=== PATIENT | female | born 1945 | race Caucasian/White ===

== ENCOUNTER 2017-08-01 14:40 | Inpatient (IN) | payer OTHER, MEDICARE, SELFPAY ==
[2017-08-01 15:02] VITALS: BP 157/49; PULSE 68; RESP 18; TEMP 36.7; O2SAT 96; BMI 22.7
[2017-08-01 15:09] VITALS: BP 157/49; PULSE 68; RESP 18; TEMP 36.7; O2SAT 96
--- NOTE | 2017-08-01 15:15 | NURSING ---
PT ARRIVED VIA WC W/FAMILY FROM [facility] MAIN AT 1440
[2017-08-01] MEDS: Amox/Clavulanate 875 MG Tablet PO (17:44)
--- NOTE | 2017-08-01 19:27 | PCM.HP.STD ---
Problem List (1) E coli bacteremia Status: Acute (2) Acute cholecystitis Status: Acute (3) Cholelithiasis Status: Acute (4) Hyperbilirubinemia Status: Acute (5) Abdominal pain Status: Acute (6) Hypothyroidism Status: Chronic (7) GODOY (nonalcoholic steatohepatitis) Status: Chronic (8) Cirrhosis Status: Chronic (9) Ascites Status: Chronic (10) Chronic kidney disease Status: Chronic (11) Coronary artery disease Status: Chronic (12) Portal hypertension Status: Acute History of Present Illness Date of Admission: 08/01/17 Chief Complaint: Here for rehabilitation, strengthening, prior to discharge home with spouse. The patient is a 71 year old Female with below past medical history significant for GODOY cirrhosis complicated by portal hypertension, recurrent ascites (requiring monthly paracentesis), CAD s/p CABG 2012, hypothyroidism, known cholelithiasis admitted to [facility] with abdominal pain x 4 days. Right upper quadrant ultrasound concerning for acute cholecystitis. Patient was scheduled for IR percutaneous cholecystostomy tube placement, but developed symptomatic bradycardia in the 30's. Cardiology consulted and cleared patient for procedure. Patient had E. Coli bacteremia treated with IV Zosyn. General Surgery considered cholecystectomy versus cholecystostomy tube placement. HIDA scan was positive. 07/26/2017 IR placed cholecystostomy tube with notable bhavani pus on placement. 08/01/2017 Admit to TCU for rehabilitation, strengthening, prior to discharge home with spouse. Will need lap cholecystectomy in near future. Past Medical History Past Medical History (Chronic Problems): Chronic Problems Hypothyroidism (Chronic) GODOY (nonalcoholic steatohepatitis) (Chronic) Cirrhosis (Chronic) Pulmonary hypertension (Chronic) Ascites (Chronic) Chronic kidney disease (Chronic) Coronary artery disease (Chronic) Allergies Sulfa (Sulfonamide Antibiotics) Allergy (Verified 08/01/17 15:04) Hives Home Medications: Ambulatory Orders Medication Instructions Recorded Amoxicillin/Potassium Clav 1 tab PO BID 08/01/17 [Augmentin 875-125 Tablet] Erythromycin Base [Erythromycin] 250 mg PO BID 08/01/17 Furosemide [Lasix] 40 mg PO 0600,1400 08/01/17 Lactulose [Chronulac] 30 ml PO TID 08/01/17 Levothyroxine [Synthroid] 25 mcg PO DAILY 08/01/17 Omeprazole 40 mg PO DAILY 08/01/17 Spironolactone [Aldactone] 100 mg PO DAILY 08/01/17 Surgical History: coronary bypass surgery - x 3 (2012), - - 07/26/2017 cholecystostomy tube placement. Psychiatric History: No pertinent psych hx CRIMINAL JUDGE History: No pertinent CRIMINAL JUDGE history Lives: Spouse/ Significant Other Smoking Status: Former smoker Tobacco Use: Non-smoker Alcohol: None Drugs: None - *Family History Maternal History Items: No pertinent history Paternal History Items: No pertinent history Review of Systems Constitutional: Denies: Chills, Fever, Weight Change HEENT: Denies: Head Aches, Sinus Congestion, Sinus Drainage Cardiovascular: Denies: Chest Pain, Palpitations Respiratory: Denies: Cough, Shortness of breath at rest, Sputum production Gastrointestinal: Denies: Abdominal Pain, Nausea, Vomiting Genitourinary: Denies: Dysuria Musculoskeletal: Denies: Joint Pain, Joint Tenderness Skin: Denies: Rash, Wounds Neurological: Denies: Numbness, Tingling, Focal weakness Psychiatric: Denies: Anxiety, Depression, Homicidal Ideations, Suicidal Ideations Hematologic/ Lymphatic: Denies: Easy Bruising, Easy Bleeding VTE Information - Inpt Only VTE Present on Admission: No VTE Mechan Device Prophylaxis: Knee High NGUYỄN Hose VTE Pharm Prophylaxis ordered?: Yes Patient Problems: Active and Suspected Problems E coli bacteremia (Acute) Acute cholecystitis (Acute) Cholelithiasis (Acute) Hyperbilirubinemia (Acute) Abdominal pain (Acute) Portal hypertension (Acute) - Physical Exam General: Alert, Oriented x3, Cooperative HEENT: Atraumatic, PERRLA, EOMI, Normocephalic Neck: Supple, No JVD, Negative Carotid Bruits Lungs: Clear to auscultation, Normal air movement Cardiovascular: Regular rate, No murmurs Abdomen: Bowel Sounds Present, Soft, Non Tender, - - Cholecystostomy tube right upper quadrant. Extremities: No edema, Capillary Refill Less than 3 Seconds Skin: No rashes, No breakdown Musculoskeletal: No Tenderness to Palpation of Joints or Extremities Neurological: Cranial nerves II-XII grossly intact Psych/Mental Status: Normal Affect, Appropriate Vital Signs Temp Pulse Resp BP Pulse Ox 98.1 F 68 18 157/49 H 96 08/01/17 15:09 08/01/17 15:09 08/01/17 15:09 08/01/17 15:09 08/01/17 15:09 Oxygen Delivery Method Room Air Weight: 54.522 kg Body Mass Index (BMI) 22.7 Assessment/Plan Active and Suspected Problems E coli bacteremia (Acute) Acute cholecystitis (Acute) Cholelithiasis (Acute) Hyperbilirubinemia (Acute) Abdominal pain (Acute) Portal hypertension (Acute) 71 year old female with below past medical history significant for GODOY cirrhosis with recurrent ascites, hospitalized for E. Coli bacteremia from acute cholecystitis with choledocholithiasis, underwent percutaneous cholecystostomy tube placement 07/26/2017 per interventional radiology, admitted to TCU with debility, here for rehabilitation, strengthening, prior to discharge home with spouse. Debility - PT/OT. Pain - Tylenol 650MG Q6H PRN mild pain. Bowel - Lactulose 20GM TID. Pneumonia vaccination - Administer Prevnar 13 and/or Pneumovax 23 as necessary. DVT prophylaxis - Lovenox 40MG SC daily. E. Coli bacteremia - Augmentin 875MG BID thru 08/09/2017, E-mycin 250MG BID. Cholelithiasis - will need lap deion in near future. Nutrition - Ensure Enlive 120ML 4x/day. Ascites/edema - Lasix 40MG BID, Aldactone 100MG daily. Hypothyroidism - Levothyroxine 25MCG daily. GERD - Pantoprazole 40MG daily. GODOY cirrhosis - Lactulose 20GM TID, Rx Xifaxan 550MG BID.
--- NOTE | 2017-08-01 19:40 | HP.PCM_ITS ---
Problem List (1) E coli bacteremia Status: Acute (2) Acute cholecystitis Status: Acute (3) Cholelithiasis Status: Acute (4) Hyperbilirubinemia Status: Acute (5) Abdominal pain Status: Acute (6) Hypothyroidism Status: Chronic (7) GODOY (nonalcoholic steatohepatitis) Status: Chronic (8) Cirrhosis Status: Chronic (9) Ascites Status: Chronic (10) Chronic kidney disease Status: Chronic (11) Coronary artery disease Status: Chronic (12) Portal hypertension Status: Acute History of Present Illness Date of Admission: 08/01/17 Chief Complaint: Here for rehabilitation, strengthening, prior to discharge home with spouse. The patient is a 71 year old Female with below past medical history significant for GODOY cirrhosis complicated by portal hypertension, recurrent ascites ( requiring monthly paracentesis), CAD s/p CABG 2012, hypothyroidism, known cholelithiasis admitted to [facility] with abdominal pain x 4 days. Right upper quadrant ultrasound concerning for acute cholecystitis. Patient was scheduled for IR percutaneous cholecystostomy tube placement, but developed symptomatic bradycardia in the 30's. Cardiology consulted and cleared patient for procedure. Patient had E. Coli bacteremia treated with IV Zosyn. General Surgery considered cholecystectomy versus cholecystostomy tube placement. HIDA scan was positive. 07/26/2017 IR placed cholecystostomy tube with notable bhavani pus on placement. 08/01/2017 Admit to TCU for rehabilitation, strengthening, prior to discharge home with spouse. Will need lap cholecystectomy in near future. Past Medical History Past Medical History (Chronic Problems): Chronic Problems Hypothyroidism (Chronic) GODOY (nonalcoholic steatohepatitis) (Chronic) Cirrhosis (Chronic) Pulmonary hypertension (Chronic) Ascites (Chronic) Chronic kidney disease (Chronic) Coronary artery disease (Chronic) Allergies Sulfa (Sulfonamide Antibiotics) Allergy (Verified 08/01/17 15:04) Hives Home Medications: Ambulatory Orders Medication Instructions Recorded Amoxicillin/Potassium Clav 1 tab PO BID 08/01/17 [Augmentin 875-125 Tablet] Erythromycin Base [Erythromycin] 250 mg PO BID 08/01/17 Furosemide [Lasix] 40 mg PO 0600,1400 08/01/17 Lactulose [Chronulac] 30 ml PO TID 08/01/17 Levothyroxine [Synthroid] 25 mcg PO DAILY 08/01/17 Omeprazole 40 mg PO DAILY 08/01/17 Spironolactone [Aldactone] 100 mg PO DAILY 08/01/17 Surgical History: coronary bypass surgery - x 3 (2012), - - 07/26/2017 cholecystostomy tube placement. Psychiatric History: No pertinent psych hx POLICY DIRECTOR History: No pertinent POLICY DIRECTOR history Lives: Spouse/ Significant Other Smoking Status: Former smoker Tobacco Use: Non-smoker Alcohol: None Drugs: None - *Family History Maternal History Items: No pertinent history Paternal History Items: No pertinent history Review of Systems Constitutional: Denies: Chills, Fever, Weight Change HEENT: Denies: Head Aches, Sinus Congestion, Sinus Drainage Cardiovascular: Denies: Chest Pain, Palpitations Respiratory: Denies: Cough, Shortness of breath at rest, Sputum production Gastrointestinal: Denies: Abdominal Pain, Nausea, Vomiting Genitourinary: Denies: Dysuria Musculoskeletal: Denies: Joint Pain, Joint Tenderness Skin: Denies: Rash, Wounds Neurological: Denies: Numbness, Tingling, Focal weakness Psychiatric: Denies: Anxiety, Depression, Homicidal Ideations, Suicidal Ideations Hematologic/ Lymphatic: Denies: Easy Bruising, Easy Bleeding VTE Information - Inpt Only VTE Present on Admission: No VTE Mechan Device Prophylaxis: Knee High NGUYỄN Hose VTE Pharm Prophylaxis ordered?: Yes Patient Problems: Active and Suspected Problems E coli bacteremia (Acute) Acute cholecystitis (Acute) Cholelithiasis (Acute) Hyperbilirubinemia (Acute) Abdominal pain (Acute) Portal hypertension (Acute) - Physical Exam General: Alert, Oriented x3, Cooperative HEENT: Atraumatic, PERRLA, EOMI, Normocephalic Neck: Supple, No JVD, Negative Carotid Bruits Lungs: Clear to auscultation, Normal air movement Cardiovascular: Regular rate, No murmurs Abdomen: Bowel Sounds Present, Soft, Non Tender, - - Cholecystostomy tube right upper quadrant. Extremities: No edema, Capillary Refill Less than 3 Seconds Skin: No rashes, No breakdown Musculoskeletal: No Tenderness to Palpation of Joints or Extremities Neurological: Cranial nerves II-XII grossly intact Psych/Mental Status: Normal Affect, Appropriate Vital Signs Temp Pulse Resp BP Pulse Ox 98.1 F 68 18 157/49 H 96 08/01/17 15:09 08/01/17 15:09 08/01/17 15:09 08/01/17 15:09 08/01/17 15:09 Oxygen Delivery Method Room Air Weight: 54.522 kg Body Mass Index (BMI) 22.7 Assessment/Plan Active and Suspected Problems E coli bacteremia (Acute) Acute cholecystitis (Acute) Cholelithiasis (Acute) Hyperbilirubinemia (Acute) Abdominal pain (Acute) Portal hypertension (Acute) 71 year old female with below past medical history significant for GODOY cirrhosis with recurrent ascites, hospitalized for E. Coli bacteremia from acute cholecystitis with choledocholithiasis, underwent percutaneous cholecystostomy tube placement 07/26/2017 per interventional radiology, admitted to TCU with debility, here for rehabilitation, strengthening, prior to discharge home with spouse. * Debility - PT/OT. * Pain - Tylenol 650MG Q6H PRN mild pain. * Bowel - Lactulose 20GM TID. * Pneumonia vaccination - Administer Prevnar 13 and/or Pneumovax 23 as necessary. * DVT prophylaxis - Lovenox 40MG SC daily. * E. Coli bacteremia - Augmentin 875MG BID thru 08/09/2017, E-mycin 250MG BID. * Cholelithiasis - will need lap deion in near future. * Nutrition - Ensure Enlive 120ML 4x/day. * Ascites/edema - Lasix 40MG BID, Aldactone 100MG daily. * Hypothyroidism - Levothyroxine 25MCG daily. * GERD - Pantoprazole 40MG daily. * GODOY cirrhosis - Lactulose 20GM TID, Rx Xifaxan 550MG BID.
[2017-08-01] MEDS: Lactulose 20 GM/30 ML UDC PO (20:48)
[2017-08-01] MEDS: Acetaminophen 325 MG Tablet 650 MG PO (22:08)
[2017-08-02 06:13] LABS: Absolute Lymphocyte Count 1.21 X10^3/ul (0.83-4.51); Absolute Neutrophil Count 2.6 X10^3/uL (2.0-7.7); Basophil# 0.08 X10^3/uL; Basophil% 1.6 % (0-1); Eosinophil# 0.12 X10^3/uL; Eosinophils% 2.4 % (0-5); Hemoglobin 11.4 g/dl (12.0-15.0); Lymphocyte # 1.21 X10^3/ul (4.0); Lymphocyte % 23.7 % (19-41); Mean Corp Hgb Conc 34.5 g/gl (32-36); Mean Corpuscular Hgb 33.8 pg (27.0-32.0); Mean Corpuscular Volume 97.9 fL (81-99); Mean Platelet Vol. 10.6 fl (6.2-12.0); Monocyte# 1.02 X10^3/uL; Neutrophil # 2.64 X10^3/uL (2.7-7.7); Neutrophil % 51.7 % (47-70); Platelet Count 127 K/mm3 (150-450); RBC Distribution Width CV 17.1 % (11.6-14.6); RBC Distribution Width SD 54.6 fl (35.1-43.9); Red Blood Count 3.37 M/mm3 (4.2-5.4); White Blood Count 5.1 K/mm3 (4.4-11.0)
[2017-08-02 06:14] LABS: POSITIVE COUNT NO; POSITIVE DIFFERENTIAL NO; POSITIVE MORPHOLOGY NO
[2017-08-02 06:24] LABS: AST(SGOT) 25 U/L (15-37); Alanine Aminotransfer ALT/SGPT 12 U/L (13-56); Albumin, Serum 2.6 g/dL (3.2-5.0); Alkaline Phosphatase 67 U/L (45-117); Anion Gap 9 (5-15); BUN 14 mg/dL (7-18); BUN/Creat Ratio 22.2 RATIO (10-20); Calcium,Total 8.3 mg/dL (8.5-10.1); Chloride 116 mmol/L (98-107); Creatinine, Serum 0.63 mg/dL (0.55-1.02); EST Glomerular Filtration Rate 98 mL/min (>60); Est Glom Filt Rate - Afr Amer 119 mL/min (>60); Estimated Creatinine Clearance 38.37 ml/min; Globulin 2.7 g/dL (2.2-4.2); Glucose 72 mg/dL (74-106); Potassium 3.8 mmol/L (3.5-5.1); Protein, Total 5.3 g/dL (6.4-8.2); Sodium Level 144 mmol/L (136-145)
[2017-08-02] MEDS: rifAXIMin 550 MG Tablet PO ×2 (06:27→17:56)
[2017-08-02] MEDS: Lactulose 20 GM/30 ML UDC PO ×2 (06:27→20:37)
[2017-08-02] MEDS: Levothyroxine 25 MCG TABLET PO (06:28)
[2017-08-02] MEDS: Spironolactone 50 MG Tablet 100 MG PO (06:28)
[2017-08-02] MEDS: Amox/Clavulanate 875 MG Tablet PO ×2 (06:28→17:56)
[2017-08-02] MEDS: Pantoprazole Sodium 40 MG Tablet PO (06:28)
[2017-08-02] MEDS: Furosemide 40 MG Tablet PO ×2 (06:28→13:26)
[2017-08-02] MEDS: Enoxaparin 40 MG/0.4 ML Syringe SC (06:41)
[2017-08-02] MEDS: Tuberculin,Purif.prot.deriv. 50 TU/ML Vial 5 ML ID (10:48)
[2017-08-02 14:46] VITALS: BP 133/57; PULSE 71; RESP 20; TEMP 36.4; O2SAT 95
[2017-08-03] MEDS: rifAXIMin 550 MG Tablet PO ×2 (05:33→18:09)
[2017-08-03] MEDS: Amox/Clavulanate 875 MG Tablet PO ×2 (05:33→18:09)
[2017-08-03] MEDS: Spironolactone 50 MG Tablet 100 MG PO (05:33)
[2017-08-03] MEDS: Furosemide 40 MG Tablet PO ×2 (05:33→14:31)
[2017-08-03] MEDS: Pantoprazole Sodium 40 MG Tablet PO (05:33)
[2017-08-03] MEDS: Levothyroxine 25 MCG TABLET PO (05:33)
[2017-08-03] MEDS: Enoxaparin 40 MG/0.4 ML Syringe SC (05:34)
--- NOTE | 2017-08-03 10:20 | NURSING ---
Was consulted to see patient for an ostomy appliance that was placed around the biliary drain to the right abdomen. according to the records from [facility], patient was too high risk for a cholecystectomy so they just placed a drainage tube instead. patient had a moderate amount of drainage from around to the tube so an ostomy bag was placed around the drain. applied was just applied on 07/31/17 so will leave in place at this time. there is a small amount of drainage in the pouch. will monitor and change weekly and prn.
[2017-08-03] MEDS: Lactulose 20 GM/30 ML UDC PO ×2 (14:31→20:31)
[2017-08-03 15:59] VITALS: BP 154/58; PULSE 78; RESP 16; TEMP 36.3; O2SAT 96
[2017-08-03 20:47] VITALS: RESP 18
[2017-08-04 05:48] VITALS: BP 107/62; PULSE 83
[2017-08-04] MEDS: Amox/Clavulanate 875 MG Tablet PO ×2 (05:51→18:05)
[2017-08-04] MEDS: Furosemide 40 MG Tablet PO ×2 (05:51→15:44)
[2017-08-04] MEDS: Levothyroxine 25 MCG TABLET PO (05:51)
[2017-08-04] MEDS: Enoxaparin 40 MG/0.4 ML Syringe SC (05:51)
[2017-08-04] MEDS: Pantoprazole Sodium 40 MG Tablet PO (05:51)
[2017-08-04] MEDS: rifAXIMin 550 MG Tablet PO ×2 (05:52→18:06)
[2017-08-04] MEDS: Spironolactone 50 MG Tablet 100 MG PO (05:52)
--- NOTE | 2017-08-04 15:17 | PHA.CONS_ITS ---
<Jacky Burns Soco - Last Filed: 08/04/17 15:12> Progress Note - Pharmacy Subjective: TCU Admission Objective: Allergies Sulfa (Sulfonamide Antibiotics) Allergy (Verified 08/01/17 15:04) Hives Home Medications Medication Instructions Recorded Amoxicillin/Potassium Clav 1 tab PO BID 08/01/17 [Augmentin 875-125 Tablet] Erythromycin Base [Erythromycin] 250 mg PO BID 08/01/17 Furosemide [Lasix] 40 mg PO 0600,1400 08/01/17 Lactulose [Chronulac] 30 ml PO TID 08/01/17 Levothyroxine [Synthroid] 25 mcg PO DAILY 08/01/17 Omeprazole 40 mg PO DAILY 08/01/17 Spironolactone [Aldactone] 100 mg PO DAILY 08/01/17 Current Medications Generic Name Dose Route Start Last Admin Trade Name Freq PRN Reason Stop Dose Admin Acetaminophen 650 mg 08/01/17 20:12 08/01/17 22:08 Tylenol PO 650 mg Q6H PRN PRN Administration MILD PAIN (1-3/10) Amoxicillin/Clavulanate Potassium 875 mg 08/01/17 18:00 08/04/17 05:51 Augmentin Tablet PO 08/09/17 18:01 875 mg BID DELORES Administration Enoxaparin Sodium 40 mg 08/02/17 06:00 08/04/17 05:51 Lovenox SC 40 mg DAILY@0600 DELORES Administration Erythromycin 250 mg 08/01/17 18:00 08/04/17 05:51 Erythromycin Base PO 250 mg BID DELORES Administration Furosemide 40 mg 08/02/17 06:00 08/04/17 05:51 Lasix PO 40 mg 0600,1400 DELORES Administration Lactulose 20 gm 08/01/17 22:00 08/04/17 05:52 Chronulac, Cephulac PO Not Given TID DELORES Levothyroxine Sodium 25 mcg 08/02/17 06:00 08/04/17 05:51 Synthroid PO 25 mcg DAILY DELORES Administration Nutritional Formula (Lactose Free) 120 ml 08/01/17 17:00 08/04/17 12:07 Ensure Enlive PO 120 ml 4X/DAY DELORES Administration Pantoprazole Sodium 40 mg 08/02/17 06:00 08/04/17 05:51 Protonix PO 40 mg DAILY DELORES Administration Rifaximin 550 mg 08/02/17 06:00 08/04/17 05:52 Xifaxan PO 550 mg BID DELORES Administration Spironolactone 100 mg 08/02/17 06:00 08/04/17 05:52 Aldactone PO 100 mg DAILY DELORES Administration Tuberculin PPD 5 tu 08/09/17 10:00 Tubersol, Aplisol, Ppd ID 08/09/17 10:01 X1 ONE Problem List E coli bacteremia (Acute) Acute cholecystitis (Acute) Cholelithiasis (Acute) Hyperbilirubinemia (Acute) Abdominal pain (Acute) Hypothyroidism (Chronic) GODOY (nonalcoholic steatohepatitis) (Chronic) Cirrhosis (Chronic) Pulmonary hypertension (Chronic) Ascites (Chronic) Chronic kidney disease (Chronic) Coronary artery disease (Chronic) Portal hypertension (Acute) Vital Signs Temp Pulse Resp BP Pulse Ox 97.3 F L 83 18 107/62 96 08/03/17 15:59 08/04/17 05:48 08/03/17 20:47 08/04/17 05:48 08/03/17 15:59 Oxygen Flow Rate (L/min) 2 Oxygen Delivery Method Room Air Weight: 50.95 kg Body Mass Index (BMI) 22.7 Sodium 144 mmol/L (136-145) 08/02/17 05:15 Potassium 3.8 mmol/L (3.5-5.1) 08/02/17 05:15 Chloride 116 mmol/L (98-107) H 08/02/17 05:15 Carbon Dioxide 19.0 mmol/L (21.0-32.0) L 08/02/17 05:15 Anion Gap 9 (5-15) 08/02/17 05:15 BUN 14 mg/dL (7-18) 08/02/17 05:15 Creatinine 0.63 mg/dL (0.55-1.02) 08/02/17 05:15 Est GFR (MDRD) Af Amer 119 mL/min (>60) 08/02/17 05:15 Est GFR (MDRD) Non-Af 98 mL/min (>60) 08/02/17 05:15 BUN/Creatinine Ratio 22.2 RATIO (10-20) H 08/02/17 05:15 Glucose 72 mg/dL (74-106) L 08/02/17 05:15 Assessment/Plan: 1) Ascites/Edema Furosemide, spironolactone. BP/HR within goal ranges, K wnl. Continue to monitor BP/HR, renal function, electrolytes. 2) ID Amoxicillin/clav until 08/09/17, erythromycin. WBC not elevated, afebrile. Continue to monitor s/s infection. 3) Cirrhosis Lactulose 3x/day, rifaximin twice daily. Continue to monitor bowel movements , s/s encephalopathy. 4) Nutrition Ensure supplement. Continue to monitor clinically. 5) DVT PPx Enoxaparin daily. Continue to monitor s/s bleeding/clot. 6) GI Pantoprazole daily. Continue to monitor s/s GI distress. 7) Hypothyroidism Levothyroxine daily. Continue to monitor s/s hyper/hypothyroidism. Psychotropic Medications: None Unnecessary Medications: None Bowel Regimen: 8) Lactulose for cirrhosis (#3) Date of Note:: 08/04/17 - Provider Comments Provider responsibility: Provider responsible to enter orders to implement recommendations <Kiko Velasco Chi - Last Filed: 08/04/17 17:40> Progress Note - Pharmacy Subjective: [] Objective: Allergies Sulfa (Sulfonamide Antibiotics) Allergy (Verified 08/01/17 15:04) Hives Home Medications Medication Instructions Recorded Amoxicillin/Potassium Clav 1 tab PO BID 08/01/17 [Augmentin 875-125 Tablet] Erythromycin Base [Erythromycin] 250 mg PO BID 08/01/17 Furosemide [Lasix] 40 mg PO 0600,1400 08/01/17 Lactulose [Chronulac] 30 ml PO TID 08/01/17 Levothyroxine [Synthroid] 25 mcg PO DAILY 08/01/17 Omeprazole 40 mg PO DAILY 08/01/17 Spironolactone [Aldactone] 100 mg PO DAILY 08/01/17 Current Medications Generic Name Dose Route Start Last Admin Trade Name Freq PRN Reason Stop Dose Admin Acetaminophen 650 mg 08/01/17 20:12 08/01/17 22:08 Tylenol PO 650 mg Q6H PRN PRN Administration MILD PAIN (1-3/10) Amoxicillin/Clavulanate Potassium 875 mg 08/01/17 18:00 08/04/17 05:51 Augmentin Tablet PO 08/09/17 18:01 875 mg BID DELORES Administration Enoxaparin Sodium 40 mg 08/02/17 06:00 08/04/17 05:51 Lovenox SC 40 mg DAILY@0600 DELORES Administration Erythromycin 250 mg 08/01/17 18:00 08/04/17 05:51 Erythromycin Base PO 250 mg BID DELORES Administration Furosemide 40 mg 08/02/17 06:00 08/04/17 15:44 Lasix PO 40 mg 0600,1400 DELORES Administration Lactulose 20 gm 08/01/17 22:00 08/04/17 15:44 Chronulac, Cephulac PO 20 gm TID DELORES Administration Levothyroxine Sodium 25 mcg 08/02/17 06:00 08/04/17 05:51 Synthroid PO 25 mcg DAILY DELORES Administration Nutritional Formula (Lactose Free) 120 ml 08/01/17 17:00 08/04/17 12:07 Ensure Enlive PO 120 ml 4X/DAY DELORES Administration Pantoprazole Sodium 40 mg 08/02/17 06:00 08/04/17 05:51 Protonix PO 40 mg DAILY DELORES Administration Rifaximin 550 mg 08/02/17 06:00 08/04/17 05:52 Xifaxan PO 550 mg BID DELORES Administration Spironolactone 100 mg 08/02/17 06:00 08/04/17 05:52 Aldactone PO 100 mg DAILY DELORES Administration Tuberculin PPD 5 tu 08/09/17 10:00 Tubersol, Aplisol, Ppd ID 08/09/17 10:01 X1 ONE Problem List E coli bacteremia (Acute) Acute cholecystitis (Acute) Cholelithiasis (Acute) Hyperbilirubinemia (Acute) Abdominal pain (Acute) Hypothyroidism (Chronic) GODOY (nonalcoholic steatohepatitis) (Chronic) Cirrhosis (Chronic) Pulmonary hypertension (Chronic) Ascites (Chronic) Chronic kidney disease (Chronic) Coronary artery disease (Chronic) Portal hypertension (Acute) Vital Signs Temp Pulse Resp BP Pulse Ox 97.5 F L 82 16 142/89 H 98 08/04/17 16:00 08/04/17 16:00 08/04/17 16:00 08/04/17 16:00 08/04/17 16:00 Oxygen Flow Rate (L/min) 2 Oxygen Delivery Method Room Air Weight: 50.95 kg Body Mass Index (BMI) 22.7 Sodium 144 mmol/L (136-145) 08/02/17 05:15 Potassium 3.8 mmol/L (3.5-5.1) 08/02/17 05:15 Chloride 116 mmol/L (98-107) H 08/02/17 05:15 Carbon Dioxide 19.0 mmol/L (21.0-32.0) L 08/02/17 05:15 Anion Gap 9 (5-15) 08/02/17 05:15 BUN 14 mg/dL (7-18) 08/02/17 05:15 Creatinine 0.63 mg/dL (0.55-1.02) 08/02/17 05:15 Est GFR (MDRD) Af Amer 119 mL/min (>60) 08/02/17 05:15 Est GFR (MDRD) Non-Af 98 mL/min (>60) 08/02/17 05:15 BUN/Creatinine Ratio 22.2 RATIO (10-20) H 08/02/17 05:15 Glucose 72 mg/dL (74-106) L 08/02/17 05:15 Assessment/Plan: Psychotropic Medications: Unnecessary Medications: Bowel Regimen: - Provider Comments Provider responsibility: Provider responsible to enter orders to implement recommendations Provider Comments to Recommendations by Pharmacy: Agree
[2017-08-04] MEDS: Lactulose 20 GM/30 ML UDC PO (15:44)
[2017-08-04 16:00] VITALS: BP 142/89; PULSE 82; RESP 16; TEMP 36.4; O2SAT 98
[2017-08-04 20:50] VITALS: PULSE 79; RESP 20; O2SAT 96
[2017-08-05] MEDS: Spironolactone 50 MG Tablet 100 MG PO (05:45)
[2017-08-05] MEDS: Furosemide 40 MG Tablet PO ×2 (05:45→13:42)
[2017-08-05] MEDS: Amox/Clavulanate 875 MG Tablet PO ×2 (05:46→17:56)
[2017-08-05] MEDS: Enoxaparin 40 MG/0.4 ML Syringe SC (05:46)
[2017-08-05] MEDS: Lactulose 20 GM/30 ML UDC PO ×3 (05:46→21:25)
[2017-08-05] MEDS: Pantoprazole Sodium 40 MG Tablet PO (05:46)
[2017-08-05] MEDS: rifAXIMin 550 MG Tablet PO ×2 (05:46→17:55)
[2017-08-05] MEDS: Levothyroxine 25 MCG TABLET PO (05:46)
--- NOTE | 2017-08-05 10:59 | CASEMGMT ---
Plan of care meeting held. Resident present as well as resident daughter. No discharge date set at this time. Resident to continue with further care and treatment on the Transitional Care Unit at this time. Resident plans to discharge home with spouse at time of discharge. Resident with an insurance update due on 08/06/17 and is aware that there is no guarantee of continued stay approval. Support given. Will continue to follow. Kiera HUTCHINSON, DEPUTY ASSESSOR
[2017-08-05] MEDS: Menthol/Lanolin/Calamine/Znox 113 GM Tube 1 APPLIC TOPICAL ×2 (13:29→21:24)
--- NOTE | 2017-08-05 14:37 | CASEMGMT ---
Brief interview for mental status (BIMS) and resident mood interview (PHQ-9) completed on this day. BIMS score 13/15. PHQ-9 score 08/07
[2017-08-05 15:28] VITALS: BP 144/71; PULSE 68; RESP 16; TEMP 35.8; O2SAT 94
[2017-08-06] MEDS: Menthol/Lanolin/Calamine/Znox 113 GM Tube 1 APPLIC TOPICAL ×3 (06:08→20:18)
[2017-08-06] MEDS: Lactulose 20 GM/30 ML UDC PO ×2 (06:10→20:16)
[2017-08-06] MEDS: Furosemide 40 MG Tablet PO ×2 (06:11→14:11)
[2017-08-06] MEDS: Levothyroxine 25 MCG TABLET PO (06:11)
[2017-08-06] MEDS: rifAXIMin 550 MG Tablet PO ×2 (06:11→17:12)
[2017-08-06] MEDS: Amox/Clavulanate 875 MG Tablet PO ×2 (06:11→17:12)
[2017-08-06] MEDS: Pantoprazole Sodium 40 MG Tablet PO (06:11)
[2017-08-06] MEDS: Spironolactone 50 MG Tablet 100 MG PO (06:12)
[2017-08-06] MEDS: Enoxaparin 40 MG/0.4 ML Syringe SC (06:14)
--- NOTE | 2017-08-06 13:32 | NURSING ---
biliary drain tube continues to leak around the insertion site. there was some leaking from the ostomy appliance that had been placed around the tube. removed the appliance at this time. there is a small amount of redness noted. cleansed skin with soap and water and patted dry. applied a piece of Hollihesive and then placed the ostomy appliance. placed another piece of Hollihesive around the tubing coming out through the ostomy bag followed by some Hytape. pt tolerated well. will continue to monitor.
--- NOTE | 2017-08-06 14:02 | CASEMGMT ---
Insurance Clinical information faxed. Pending continued stay approval at this time. Auth#[id number] Kiera HUTCHINSON, SILK CREPE MACHINE OPERATOR
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
[2017-08-06 16:00] VITALS: BP 123/60; PULSE 78; RESP 16; TEMP 36.8; O2SAT 96
[2017-08-07] MEDS: Pantoprazole Sodium 40 MG Tablet PO (06:33)
[2017-08-07] MEDS: Furosemide 40 MG Tablet PO ×2 (06:33→14:28)
[2017-08-07] MEDS: Enoxaparin 40 MG/0.4 ML Syringe SC (06:33)
[2017-08-07] MEDS: Spironolactone 50 MG Tablet 100 MG PO (06:33)
[2017-08-07] MEDS: Levothyroxine 25 MCG TABLET PO (06:33)
[2017-08-07] MEDS: Amox/Clavulanate 875 MG Tablet PO ×2 (06:33→18:25)
[2017-08-07] MEDS: Lactulose 20 GM/30 ML UDC PO ×3 (06:34→22:03)
[2017-08-07] MEDS: rifAXIMin 550 MG Tablet PO ×2 (06:34→18:25)
[2017-08-07] MEDS: Menthol/Lanolin/Calamine/Znox 113 GM Tube 1 APPLIC TOPICAL ×3 (06:38→22:03)
--- NOTE | 2017-08-07 08:23 | MDS.RN ---
Pain interview for MARGO 08/08/17 completed.
[2017-08-07 16:00] VITALS: BP 125/53; PULSE 69; RESP 20; TEMP 36.2; O2SAT 96
[2017-08-07 22:30] VITALS: RESP 15; O2SAT 95
[2017-08-08] MEDS: Amox/Clavulanate 875 MG Tablet PO ×2 (05:29→17:26)
[2017-08-08] MEDS: Levothyroxine 25 MCG TABLET PO (05:29)
[2017-08-08] MEDS: Furosemide 40 MG Tablet PO ×2 (05:29→14:27)
[2017-08-08] MEDS: rifAXIMin 550 MG Tablet PO ×2 (05:29→17:26)
[2017-08-08] MEDS: Pantoprazole Sodium 40 MG Tablet PO (05:30)
[2017-08-08] MEDS: Spironolactone 50 MG Tablet 100 MG PO (05:30)
[2017-08-08] MEDS: Enoxaparin 40 MG/0.4 ML Syringe SC (05:30)
[2017-08-08] MEDS: Menthol/Lanolin/Calamine/Znox 113 GM Tube 1 APPLIC TOPICAL ×3 (05:45→20:27)
--- NOTE | 2017-08-08 07:45 | NURSING ---
bili drain flushed with 5 cc sterile normal saline this am. flushed without difficulty. green drng noted in bag.
[2017-08-08] MEDS: Lactulose 20 GM/30 ML UDC PO ×2 (14:27→20:27)
[2017-08-08 15:35] VITALS: BP 122/53; PULSE 71; RESP 18; TEMP 36.4; O2SAT 94
[2017-08-08 21:30] VITALS: PULSE 82; RESP 20; O2SAT 97
[2017-08-09] MEDS: Menthol/Lanolin/Calamine/Znox 113 GM Tube 1 APPLIC TOPICAL ×3 (06:05→20:15)
[2017-08-09] MEDS: Lactulose 20 GM/30 ML UDC PO ×3 (06:07→20:17)
[2017-08-09] MEDS: Enoxaparin 40 MG/0.4 ML Syringe SC (06:08)
[2017-08-09] MEDS: Pantoprazole Sodium 40 MG Tablet PO (06:09)
[2017-08-09] MEDS: rifAXIMin 550 MG Tablet PO ×2 (06:09→18:19)
[2017-08-09] MEDS: Levothyroxine 25 MCG TABLET PO (06:09)
[2017-08-09] MEDS: Amox/Clavulanate 875 MG Tablet PO ×2 (06:09→18:19)
[2017-08-09] MEDS: Furosemide 40 MG Tablet PO ×2 (06:09→13:06)
[2017-08-09] MEDS: Spironolactone 50 MG Tablet 100 MG PO (06:09)
[2017-08-09 06:17] VITALS: PULSE 76; RESP 18; O2SAT 97
[2017-08-09 06:45] LABS: ALB/GLOB Ratio 0.9 RATIO (0.9-2.4); AST(SGOT) 32 U/L (15-37); Absolute Lymphocyte Count 1.27 X10^3/ul (0.83-4.51); Absolute Neutrophil Count 1.8 X10^3/uL (2.0-7.7); Alanine Aminotransfer ALT/SGPT 14 U/L (13-56); Albumin, Serum 3.1 g/dL (3.2-5.0); Alkaline Phosphatase 124 U/L (45-117); Anion Gap 8 (5-15); BUN 26 mg/dL (7-18); BUN/Creat Ratio 22.6 RATIO (10-20); Basophil# 0.06 X10^3/uL; Basophil% 1.4 % (0-1); Calcium,Total 9.6 mg/dL (8.5-10.1); Chloride 108 mmol/L (98-107); Creatinine, Serum 1.15 mg/dL (0.55-1.02); EST Glomerular Filtration Rate 49 mL/min (>60); Eosinophil# 0.14 X10^3/uL; Eosinophils% 3.3 % (0-5); Est Glom Filt Rate - Afr Amer 60 mL/min (>60); Estimated Creatinine Clearance 33.37 ml/min; Globulin 3.6 g/dL (2.2-4.2); Glucose 81 mg/dL (74-106); Hematocrit 37.7 % (37-47); Hemoglobin 12.8 g/dl (12.0-15.0); Lymphocyte # 1.27 X10^3/ul (4.0); Lymphocyte % 30.1 % (19-41); Mean Corpuscular Hgb 34.4 pg (27.0-32.0); Mean Corpuscular Volume 101.3 fL (81-99); Mean Platelet Vol. 10.6 fl (6.2-12.0); Monocyte# 0.94 X10^3/uL; Monocyte% 22.3 % (0-10); Neutrophil # 1.79 X10^3/uL (2.7-7.7); Neutrophil % 42.4 % (47-70); Platelet Count 167 K/mm3 (150-450); Potassium 3.3 mmol/L (3.5-5.1); Protein, Total 6.7 g/dL (6.4-8.2); RBC Distribution Width SD 66.6 fl (35.1-43.9); Red Blood Count 3.72 M/mm3 (4.2-5.4); Sodium Level 143 mmol/L (136-145); White Blood Count 4.2 K/mm3 (4.4-11.0)
[2017-08-09 06:47] LABS: Differential Indicated SCAN CRITERIA MET; POSITIVE COUNT NO; POSITIVE DIFFERENTIAL NO; POSITIVE MORPHOLOGY YES
[2017-08-09 07:51] LABS: Differential Comment SCAN
[2017-08-09 07:53] LABS: Anisocytosis 1+; Macrocytosis 1+
[2017-08-09] MEDS: Tuberculin,Purif.prot.deriv. 50 TU/ML Vial 5 ML ID (11:33)
[2017-08-09 15:51] VITALS: BP 143/53; PULSE 48; RESP 20; TEMP 36.8; O2SAT 93
[2017-08-09] MEDS: Acetaminophen 325 MG Tablet 650 MG PO (20:23)
[2017-08-10 05:50] LABS: Anion Gap 8 (5-15); BUN 27 mg/dL (7-18); BUN/Creat Ratio 25.2 RATIO (10-20); Calcium,Total 9.3 mg/dL (8.5-10.1); Chloride 110 mmol/L (98-107); Creatinine, Serum 1.07 mg/dL (0.55-1.02); EST Glomerular Filtration Rate 53 mL/min (>60); Est Glom Filt Rate - Afr Amer 65 mL/min (>60); Estimated Creatinine Clearance 35.86 ml/min; Glucose 85 mg/dL (74-106); Potassium 3.8 mmol/L (3.5-5.1); Sodium Level 144 mmol/L (136-145)
[2017-08-10] MEDS: Menthol/Lanolin/Calamine/Znox 113 GM Tube 1 APPLIC TOPICAL ×3 (06:24→20:52)
[2017-08-10] MEDS: Lactulose 20 GM/30 ML UDC PO ×3 (06:25→20:52)
[2017-08-10] MEDS: Enoxaparin 40 MG/0.4 ML Syringe SC (06:26)
[2017-08-10] MEDS: Spironolactone 50 MG Tablet 100 MG PO (06:26)
[2017-08-10] MEDS: Furosemide 40 MG Tablet PO ×2 (06:26→13:23)
[2017-08-10] MEDS: rifAXIMin 550 MG Tablet PO ×2 (06:27→17:00)
[2017-08-10] MEDS: Pantoprazole Sodium 40 MG Tablet PO (06:27)
[2017-08-10] MEDS: Levothyroxine 25 MCG TABLET PO (06:27)
[2017-08-10 06:30] VITALS: PULSE 80; RESP 16; O2SAT 98
--- NOTE | 2017-08-10 09:08 | NURSING ---
percutaneous drain and the pouch are both intact at this time. no leakage noted. will continue to monitor. there has been less leakage noted in the ostomy appliance that is placed around the drain. may be able to just place a drain sponge if minimal drainage is noted. will monitor.
[2017-08-10 10:00] VITALS: PULSE 90; RESP 16; O2SAT 95
--- NOTE | 2017-08-10 11:51 | CASEMGMT ---
Insurance Continued stay approved with next update due on 08/13/17. Auth#[id number] Kiera HUTCHINSON, EXECUTIVE MEETING MANAGER
[2017-08-10 15:10] VITALS: BP 129/72; PULSE 76; RESP 16; TEMP 36.5; O2SAT 95
--- NOTE | 2017-08-10 15:26 | NURSING ---
pt c/o nausea, dr santos notified, zofran order PRN
[2017-08-10] MEDS: Ondansetron ODT 4 MG Tablet PO (15:53)
[2017-08-11] MEDS: Menthol/Lanolin/Calamine/Znox 113 GM Tube 1 APPLIC TOPICAL ×3 (05:50→20:23)
[2017-08-11] MEDS: Lactulose 20 GM/30 ML UDC PO ×3 (05:50→20:23)
[2017-08-11] MEDS: Spironolactone 50 MG Tablet 100 MG PO (05:50)
[2017-08-11] MEDS: Furosemide 40 MG Tablet PO ×2 (05:51→13:46)
[2017-08-11] MEDS: Enoxaparin 40 MG/0.4 ML Syringe SC (05:51)
[2017-08-11] MEDS: Pantoprazole Sodium 40 MG Tablet PO (05:52)
[2017-08-11] MEDS: rifAXIMin 550 MG Tablet PO ×2 (05:52→17:25)
[2017-08-11] MEDS: Levothyroxine 25 MCG TABLET PO (05:52)
[2017-08-11 10:00] VITALS: PULSE 71; RESP 18; O2SAT 99
--- NOTE | 2017-08-11 14:47 | CASEMGMT ---
Brief interview for mental status (BIMS) and resident mood interview (PHQ-9) completed on this day. BIMS score 15. PHQ-9 score 05/09
--- NOTE | 2017-08-11 14:49 | CASEMGMT ---
Social Work Spoke with resident in room. This social media intern communicating that discharge date has been set for 08/16/17. Resident is agreeable to discharge date and plans to discharge home with family. Resident agreeable to outpatient physical therapy but is unsure of what facility yet. Resident plans to speak with resident family in regards to what outpatient therapy facility to go with. Resident planning to notify family about discharge, attempted to contact resident spouse about discharge date, voicemail left. Support given. Proposed discharge date: 08/16/17 PLAN: Discharge home with spouse and outpatient physical therapy. Kiera HUTCHINSON, LEAD INJECTION MOLD TECHNICIAN
[2017-08-11 16:00] VITALS: BP 138/57; PULSE 75; RESP 18; TEMP 36.3; O2SAT 97
--- NOTE | 2017-08-11 21:17 | PCM.DC ---
- Discharge Diagnoses Current Active Problems: Current Active and Chronic Problems E coli bacteremia (Acute) Acute cholecystitis (Acute) Cholelithiasis (Acute) Hyperbilirubinemia (Acute) Abdominal pain (Acute) Hypothyroidism (Chronic) GODOY (nonalcoholic steatohepatitis) (Chronic) Cirrhosis (Chronic) Pulmonary hypertension (Chronic) Ascites (Chronic) Chronic kidney disease (Chronic) Coronary artery disease (Chronic) Portal hypertension (Acute) You will use the following diet at home:: No restrictions, Regular Your food should be the consistency of: Regular Your liquids should be the consistency of: Regular/Thin Discharge Activity: Return to Normal Activity, May Shower, Use Walker May resume sexual activity in: No Restrictions Weight Bearing Status: Weight bearing as tolerated Call your doctor if you observe: Fever of 101 or Higher, Inability to urinate, Inability to have a bowel movement, Shortness of breath, Chest pain, Uncontrolled pain Allergies/Adverse Reactions: Allergies Sulfa (Sulfonamide Antibiotics) Allergy (Verified 08/01/17 15:04) Hives Medications to take at Discharge Furosemide [Lasix] 40 mg PO 0600,1400 08/01/17 Lactulose [Chronulac] 30 ml PO TID 08/01/17 Levothyroxine [Synthroid] 25 mcg PO DAILY 08/01/17 Omeprazole 40 mg PO DAILY 08/01/17 Spironolactone [Aldactone] 100 mg PO DAILY 08/01/17 Acetaminophen [Tylenol Tablet] 650 mg PO Q6H PRN PRN tablet 08/11/17 Menthol/Lanolin/Calamine/Znox [Calmoseptine Ointment] 1 applic TOPICAL TID tube 08/11/17 Ondansetron [Zofran Odt] 4 mg PO Q6H PRN PRN #60 tab 08/11/17 Potassium Chloride [K-Dur] 20 meq PO DAILYCM #30 tab 08/11/17 Rifaximin [Xifaxan] 550 mg PO BID #60 tab 08/11/17 The following prescriptions were given: Ondansetron [Zofran Odt] 4 mg PO Q6H PRN PRN #60 tab PRN Reason: Nausea Potassium Chloride [K-Dur] 20 meq PO DAILYCM #30 tab Rifaximin [Xifaxan] 550 mg PO BID #60 tab Primary Care Physician: Fish Becerril [Primary Care Provider] - Please follow up with your Primary Care Physician in: 1 week. Please Follow Up With: NIURKA REIS MD When: [phone] Please Follow Up With: YARA GALICIA When: [phone] Proposed Discharge Date: 08/16/17
--- NOTE | 2017-08-11 21:19 | PCM.DC.SUM ---
Discharge Date and Diagnosis - Problem List Patient Problems: Active and Suspected Problems E coli bacteremia (Acute) Acute cholecystitis (Acute) Cholelithiasis (Acute) Hyperbilirubinemia (Acute) Abdominal pain (Acute) Portal hypertension (Acute) Date of Admission: 08/01/17 Date of Discharge: 08/16/17 - Primary Discharge Diagnosis Active and Suspected Problems E coli bacteremia (Acute) Acute cholecystitis (Acute) Cholelithiasis (Acute) Hyperbilirubinemia (Acute) Abdominal pain (Acute) Portal hypertension (Acute) - Secondary Discharge Diagnosis Chronic Problems Hypothyroidism (Chronic) GODOY (nonalcoholic steatohepatitis) (Chronic) Cirrhosis (Chronic) Pulmonary hypertension (Chronic) Ascites (Chronic) Chronic kidney disease (Chronic) Coronary artery disease (Chronic) Hospital Course and Treatment Imaging Results: 08/01/17 16:06 Diet: Regular Diet Food consistency:: Regular Liquid Consistency:: Regular/Thin Is pt able to select menu?: No Diet Comments: LOW SALT Labs (Last 48 Hours) 08/10/17 05:05 Sodium 144 Potassium 3.8 Chloride 110 H Carbon Dioxide 26.0 Anion Gap 8 BUN 27 H Creatinine 1.07 H Estim Creat Clear Calc 35.86 Est GFR (MDRD) Af Amer 65 Est GFR (MDRD) Non-Af 53 L BUN/Creatinine Ratio 25.2 H Glucose 85 Calcium 9.3 Consultations 08/01/17 18:16 Consult: Onc/Wound/tinning 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 Coli bacteremia from acute cholecystitis with choledocholithiasis, underwent percutaneous cholecystostomy tube placement 07/26/2017 per interventional radiology, admitted to TCU with debility, here for rehabilitation, strengthening, prior to discharge home with spouse. [] Discharge home with spouse, and outpatient physical therapy. Discharge Diet: No Restrictions Discharge Activity: Return to Normal Activity, May Shower, Use Walker May resume sexual activity in: No Restrictions Weight Bearing Status: Weight bearing as tolerated Call your doctor if you observe: Fever of 101 or Higher, Inability to urinate, Inability to have a bowel movement, Shortness of breath, Chest pain, Uncontrolled pain Home Medications: Medications to take at Discharge Furosemide [Lasix] 40 mg PO 0600,1400 04/21/18 Lactulose [Chronulac] 30 ml PO TID 08/01/17 Levothyroxine [Synthroid] 25 mcg PO DAILY 08/01/17 Omeprazole 40 mg PO DAILY 08/01/17 Spironolactone [Aldactone] 100 mg PO DAILY 08/01/17 Acetaminophen [Tylenol Tablet] 650 mg PO Q6H PRN PRN tablet 08/11/17 Menthol/Lanolin/Calamine/Znox [Calmoseptine Ointment] 1 applic TOPICAL TID tube 08/11/17 Ondansetron [Zofran Odt] 4 mg PO Q6H PRN PRN #60 tab 08/11/17 Potassium Chloride [K-Dur] 20 meq PO DAILYCM #30 tab 08/11/17 Rifaximin [Xifaxan] 550 mg PO BID #60 tab 08/11/17 Following Prescrptions Were Given to Patient: Ondansetron [Zofran Odt] 4 mg PO Q6H PRN PRN #60 tab PRN Reason: Nausea Potassium Chloride [K-Dur] 20 meq PO DAILYCM #30 tab Rifaximin [Xifaxan] 550 mg PO BID #60 tab Primary Care Physician: Fish Becerril [Primary Care Provider] - Please follow up with your Primary Care Physician in: 1 week. Please Follow Up With: NIURKA REIS MD When: [phone] Please Follow Up With: YARA GALICIA When: [phone] Disposition: Home Minutes spent on discharge:: 30 Patient Condition:: Good Medical Necessity - Tobacco Use Smoking Status: Former smoker Tobacco Use: Non-smoker Meaningful Use Info Meaningful Use Diagnoses (Choose all that apply): None applicable
[2017-08-12] MEDS: Pantoprazole Sodium 40 MG Tablet PO (06:10)
[2017-08-12] MEDS: Menthol/Lanolin/Calamine/Znox 113 GM Tube 1 APPLIC TOPICAL ×3 (06:10→20:46)
[2017-08-12] MEDS: Spironolactone 50 MG Tablet 100 MG PO (06:10)
[2017-08-12] MEDS: Furosemide 40 MG Tablet PO ×2 (06:10→13:47)
[2017-08-12] MEDS: Levothyroxine 25 MCG TABLET PO (06:10)
[2017-08-12] MEDS: Lactulose 20 GM/30 ML UDC PO ×3 (06:10→20:47)
[2017-08-12] MEDS: Enoxaparin 40 MG/0.4 ML Syringe SC (06:11)
[2017-08-12] MEDS: rifAXIMin 550 MG Tablet PO ×2 (06:11→17:16)
[2017-08-12 06:27] VITALS: PULSE 74; RESP 16; O2SAT 95
[2017-08-12 15:28] VITALS: BP 147/74; PULSE 82; RESP 18; TEMP 36.6; O2SAT 98
--- NOTE | 2017-08-12 19:11 | NURSING ---
TEACHING DONE WITH ON DRAIN. WILL CONTINUE TO TEACH.
[2017-08-13 05:58] VITALS: BP 111/64; PULSE 68
[2017-08-13] MEDS: Furosemide 40 MG Tablet PO ×2 (05:59→13:18)
[2017-08-13] MEDS: rifAXIMin 550 MG Tablet PO ×2 (05:59→17:27)
[2017-08-13] MEDS: Spironolactone 50 MG Tablet 100 MG PO (05:59)
[2017-08-13] MEDS: Levothyroxine 25 MCG TABLET PO (05:59)
[2017-08-13] MEDS: Pantoprazole Sodium 40 MG Tablet PO (05:59)
[2017-08-13] MEDS: Lactulose 20 GM/30 ML UDC PO ×3 (06:00→20:04)
[2017-08-13] MEDS: Enoxaparin 40 MG/0.4 ML Syringe SC (06:00)
[2017-08-13] MEDS: Menthol/Lanolin/Calamine/Znox 113 GM Tube 1 APPLIC TOPICAL ×3 (06:00→20:03)
--- NOTE | 2017-08-13 08:41 | NURSING ---
In to assess the ostomy appliance around the percutaneous drain. appliance loose. patient has a fine rash to the right lower and left lower abdomen. there has been very minimal drainage noted around the insertion site. removed the ostomy appliance. cleansed with soap and water and patted dry. there is a small amount of redness noted. placed a split drain sponge followed by a 4x4 dressing. secured dressing with tape. pt tolerated well. patient aware that dressing should be changed every other day at home. dressing should be changed more often in drainage around the tube increases. pt denies questions at this time.
[2017-08-13 10:00] VITALS: PULSE 72; RESP 16; O2SAT 95
--- NOTE | 2017-08-13 11:35 | CASEMGMT ---
Insurance Clinical information faxed. Pending continued stay approval. Auth#[id number] Kiera HUTCHINSON, TWISTING FRAME CHANGER
--- NOTE | 2017-08-13 11:52 | NURSING ---
EVANGELINA Qureshi aware of pt removal of ascities pouch by wound nurse and dressing change orders for discharge.
[2017-08-13 15:36] VITALS: BP 133/69; PULSE 70; RESP 16; TEMP 36.7; O2SAT 97
--- NOTE | 2017-08-13 20:19 | NURSING ---
GILBERT IN ROOM. THIS NURSE TAUGHT TO EMPTY BILI DRAIN AND DO FLUSH. GILBERT HAS WATCHED X 3. TOMORROW NIGHT HE WILL DO PROCEDURE AND THIS NURSE WILL WATCH. AND PATIENT COMFORTABLE WITH SAME. THIS REPORTED TO RADHA,RN AND JILLIAN RN. WILL CONT TO MONITOR.
[2017-08-14] MEDS: Menthol/Lanolin/Calamine/Znox 113 GM Tube 1 APPLIC TOPICAL ×3 (06:06→21:10)
[2017-08-14] MEDS: Spironolactone 50 MG Tablet 100 MG PO (06:07)
[2017-08-14] MEDS: rifAXIMin 550 MG Tablet PO ×2 (06:07→17:55)
[2017-08-14] MEDS: Levothyroxine 25 MCG TABLET PO (06:07)
[2017-08-14] MEDS: Lactulose 20 GM/30 ML UDC PO ×3 (06:07→21:09)
[2017-08-14] MEDS: Furosemide 40 MG Tablet PO ×2 (06:07→14:54)
[2017-08-14] MEDS: Enoxaparin 40 MG/0.4 ML Syringe SC (06:08)
[2017-08-14] MEDS: Pantoprazole Sodium 40 MG Tablet PO (06:08)
--- NOTE | 2017-08-14 13:24 | MDS.RN ---
Information for the mds was obtained from review of the clinical record, interview of resident, staff, and direct observation of resident's care.
--- NOTE | 2017-08-14 13:36 | CASEMGMT ---
Social Work Met with resident in room to collaborate on discharge plan. Resident requesting for outpatient physical therapy to be set up through [facility] in [place], [place]. Resident reporting to have needed equipment already set up within the home. Resident spouse to provide transportation home for resident. Resident spouse has also been participating in teaching for managing resident drains. Dressing supplies ordered and faxed to [facility], per resident request. Resident spouse planning to tow picker supplies from [facility]. Resident spouse aware and agreeable to all discharge planning. Support given. Telephone call to [facility], appointment set up for August 26 @ 4:30pm. Order faxed. - This was the soonest that would work for resident. PLAN: Discharge home with spouse and outpatient physical therapy. Kiera HUTCHINSON, MANAGER SAFE
[2017-08-14] MEDS: Hydrocortisone 2.5% Crm 1 APPLIC TOPICAL (14:56)
[2017-08-14 16:00] VITALS: BP 135/66; PULSE 74; RESP 16; TEMP 37; O2SAT 99
--- NOTE | 2017-08-14 19:22 | NURSING ---
instructed on drain dressing change. denies any questions.
[2017-08-15] MEDS: Menthol/Lanolin/Calamine/Znox 113 GM Tube 1 APPLIC TOPICAL ×3 (04:54→21:01)
[2017-08-15] MEDS: Levothyroxine 25 MCG TABLET PO ×2 (04:55)
[2017-08-15] MEDS: Furosemide 40 MG Tablet PO ×2 (04:55→16:11)
[2017-08-15] MEDS: rifAXIMin 550 MG Tablet PO ×2 (04:55→16:28)
[2017-08-15] MEDS: Pantoprazole Sodium 40 MG Tablet PO (04:55)
[2017-08-15] MEDS: Hydrocortisone 2.5% Crm 1 APPLIC TOPICAL ×2 (04:56→16:31)
[2017-08-15] MEDS: Enoxaparin 40 MG/0.4 ML Syringe SC (04:56)
[2017-08-15] MEDS: Spironolactone 50 MG Tablet 100 MG PO (04:56)
[2017-08-15] MEDS: Lactulose 20 GM/30 ML UDC PO ×3 (04:56→22:25)
--- NOTE | 2017-08-15 11:01 | NURSING ---
Addendum entered by Nicol Lopez 08/15/17 17:17: correction: hold rifaximin until further notice, not rifampin. Original Note: Addendum entered by Nicol Lopez 08/15/17 17:12: Patient's rash worsening, now large, red, raised areas to RLQ, BL upper arms and back, very pruritic. Bili drain noted to have moderate amount of bloody drainage, 60mL total. Dr. Velasco notified, NO for CBC w/diff, CMP, STAT CT of abdomen and pelvis with and without contrast and UA C&S straight cath, hold rifampin until further notice. Patient and spouse made aware. Original Note: Patient has a red, raised rash from scalp to flank/torso area. Hytone cream ineffective for itching. NO for medrol dose pack.
[2017-08-15 14:13] VITALS: BP 122/53; PULSE 77; RESP 20; TEMP 36.4; O2SAT 97
[2017-08-15] MEDS: MethylPREDNISolone DosePak 4 MG BOX PO ×2 (16:29→22:25)
--- NOTE | 2017-08-15 17:10 | CT_ITS ---
STUDY: CT ABDOMEN AND PELVIS WITHOUT CONTRAST REASON FOR EXAM: Female, 71 years old. Ascites. Gallbladder dysfunction. RADIATION DOSAGE (If Supplied By Facility): CTDIvol = ( 6.04 ) mGy, DLP = ( 276.33 ) mGycm TECHNIQUE: Transaxial images were obtained from the dome of the diaphragm to the symphysis pubis without oral contrast, and without intravenous contrast. Sagittal and coronal images were reconstructed. Individualized dose optimization techniques were used for this CT. COMPARISON: None. FINDINGS: There is a moderate size right pleural effusion present. There are coronary artery calcifications present. There is a diffuse contour abnormality of the liver consistent with cirrhotic changes. There is a cholecystostomy tube within the gallbladder. Normal spleen. Normal pancreas. Normal bilateral adrenal glands. Normal right kidney. Normal left kidney. Normal visualized stomach. Normal small intestine. There are diverticula throughout the descending and sigmoid colon. The appendix is visualized and appears normal. Normal abdominal aorta. Normal inferior vena cava. Normal retroperitoneum. Normal urinary bladder. Normal abdominal wall. There are diffuse degenerative changes of the visualized lumbar spine. CT/Abdomen/Pel W ORAL Cont Only IMPRESSION: Moderate right pleural effusion. Cirrhotic liver. Atherosclerosis. Colonic diverticulosis. Degenerative changes. No free fluid identified. Electronically Signed: Wilma Doran MD at 21:44 EDT Tel , Service support ,
[2017-08-15 17:46] LABS: Absolute Lymphocyte Count 1.37 X10^3/ul (0.83-4.51); Absolute Neutrophil Count 1.9 X10^3/uL (2.0-7.7); Basophil# 0.05 X10^3/uL; Eosinophil# 0.18 X10^3/uL; Eosinophils% 3.7 % (0-5); Hematocrit 36.1 % (37-47); Hemoglobin 12.1 g/dl (12.0-15.0); Lymphocyte # 1.37 X10^3/ul (4.0); Lymphocyte % 28.2 % (19-41); Mean Corp Hgb Conc 33.5 g/gl (32-36); Mean Corpuscular Hgb 34.4 pg (27.0-32.0); Mean Corpuscular Volume 102.6 fL (81-99); Mean Platelet Vol. 10.4 fl (6.2-12.0); Monocyte# 1.33 X10^3/uL; Monocyte% 27.4 % (0-10); Neutrophil # 1.89 X10^3/uL (2.7-7.7); Neutrophil % 39.1 % (47-70); Platelet Count 181 K/mm3 (150-450); RBC Distribution Width CV 18.6 % (11.6-14.6); RBC Distribution Width SD 68.4 fl (35.1-43.9); Red Blood Count 3.52 M/mm3 (4.2-5.4); White Blood Count 4.9 K/mm3 (4.4-11.0)
[2017-08-15 17:48] LABS: Differential Indicated SCAN CRITERIA MET; POSITIVE COUNT NO; POSITIVE DIFFERENTIAL NO; POSITIVE MORPHOLOGY YES
[2017-08-15 18:06] LABS: ALB/GLOB Ratio 0.8 RATIO (0.9-2.4); AST(SGOT) 43 U/L (15-37); Alanine Aminotransfer ALT/SGPT 20 U/L (13-56); Albumin, Serum 3.2 g/dL (3.2-5.0); Alkaline Phosphatase 178 U/L (45-117); Anion Gap 8 (5-15); BUN 30 mg/dL (7-18); BUN/Creat Ratio 20.5 RATIO (10-20); Calcium,Total 9.5 mg/dL (8.5-10.1); Chloride 101 mmol/L (98-107); Creatinine, Serum 1.46 mg/dL (0.55-1.02); EST Glomerular Filtration Rate 37 mL/min (>60); Est Glom Filt Rate - Afr Amer 45 mL/min (>60); Estimated Creatinine Clearance 26.28 ml/min; Globulin 4.1 g/dL (2.2-4.2); Glucose 90 mg/dL (74-106); Potassium 5.6 mmol/L (3.5-5.1); Protein, Total 7.3 g/dL (6.4-8.2); Sodium Level 136 mmol/L (136-145)
[2017-08-15 18:13] LABS: Anisocytosis 1+; Macrocytosis 1+; Ovalocyte RARE; Platelet Estimate ADEQUATE (ADEQ)
--- NOTE | 2017-08-15 18:37 | NURSING ---
Labs reviewed with GHULAM Shepherd for kayexalate 30grams x1 now, 1L NS bolus x1, BMP tomorrow and culture, cell count and gram stain of bili drainage. Okay to use oral contrast instead of IV d/t kidney function. Patient and made aware.
[2017-08-15] MEDS: Sodium Polystyrene Sulfonate 15 GM/60 ML UDC 30 GM PO (20:58)
[2017-08-15 21:11] VITALS: PULSE 72; RESP 18; O2SAT 97
[2017-08-15 21:44] LABS: Appearance/Body Fluid CLOUDY; Auto B Fluid Analyzer BKGD Ct COUNTS W/IN LIMITS (W/IN LIMITS); Color/Body Fluid RED; Source- Body Fluid OTHER
[2017-08-15 21:45] LABS: Body Fluid QC Type(s) BF1Q; Lymphocytes 8 %; Monocytes 2 %; Neutrophil (Segs) 90 %
[2017-08-15] MEDS: 0.9% Normal Saline 1,000 ML 500 ML IV (21:45)
--- NOTE | 2017-08-15 22:16 | NURSING ---
Addendum entered by Kylah Vasquez 08/15/17 22:19: Pt and updated. Original Note: Dr Velasco notified of CT results. N.O. to stop enoxparin.
[2017-08-15 23:10] LABS: Red Cell Count/Body Fluid 1491 /mm3; White Blood Count/Body Fluid 859 /mm3
[2017-08-16] MEDS: Lactulose 20 GM/30 ML UDC PO (05:41)
[2017-08-16] MEDS: Menthol/Lanolin/Calamine/Znox 113 GM Tube 1 APPLIC TOPICAL (05:41)
[2017-08-16] MEDS: Spironolactone 50 MG Tablet 100 MG PO (05:41)
[2017-08-16] MEDS: Pantoprazole Sodium 40 MG Tablet PO (05:42)
[2017-08-16] MEDS: Furosemide 40 MG Tablet PO (05:42)
[2017-08-16] MEDS: Hydrocortisone 2.5% Crm 1 APPLIC TOPICAL (05:42)
[2017-08-16 07:39] LABS: Bacteria 0 SEEN /hpf (None Seen); Mucous, Urine 0 SEEN /hpf (<or=2+); Red Blood Cells-Urine 0 SEEN /hpf (0-5)
[2017-08-16 07:45] LABS: Color, Urine Yellow (Yellow); Glucose, Dipstick Normal (Normal); Ketone-Dipstick Negative (Negative); Leukocyte Esterase-Dipstick 25 /ul (Negative); Nitrite-Dipstick Negative (Negative); Occult Blood-Urine 10 /ul (Negative); Protein-Dipstick Negative (Negative); Urine Bilirubin Dipstick Negative (Negative); Urine Clarity Clear (Clear); Urine Urobilinogen Normal (Normal); Urine pH 6.5 (5.0 - 8.0)
[2017-08-16 07:47] LABS: Absolute Lymphocyte Count 0.61 X10^3/ul (0.83-4.51); Absolute Neutrophil Count 2.2 X10^3/uL (2.0-7.7); Basophil# 0.02 X10^3/uL; Basophil% 0.7 % (0-1); Differential Indicated SCAN CRITERIA MET; Hematocrit 35.3 % (37-47); Hemoglobin 11.8 g/dl (12.0-15.0); Lymphocyte # 0.61 X10^3/ul (4.0); Lymphocyte % 20.1 % (19-41); Mean Corp Hgb Conc 33.4 g/gl (32-36); Mean Corpuscular Hgb 34.5 pg (27.0-32.0); Mean Corpuscular Volume 103.2 fL (81-99); Mean Platelet Vol. 10.7 fl (6.2-12.0); Monocyte# 0.21 X10^3/uL; Monocyte% 6.9 % (0-10); Neutrophil # 2.16 X10^3/uL (2.7-7.7); Neutrophil % 71.3 % (47-70); POSITIVE COUNT NO; POSITIVE DIFFERENTIAL NO; POSITIVE MORPHOLOGY YES; Platelet Count 163 K/mm3 (150-450); RBC Distribution Width CV 18.4 % (11.6-14.6); RBC Distribution Width SD 66.1 fl (35.1-43.9); Red Blood Count 3.42 M/mm3 (4.2-5.4)
[2017-08-16 07:54] LABS: Squamous Epithelial Cells - UA 0-5 SEEN /hpf (5-10); White Blood Cells 0-5 SEEN /hpf (0-5)
[2017-08-16] MEDS: MethylPREDNISolone DosePak 4 MG BOX PO (07:55)
[2017-08-16 08:12] LABS: ALB/GLOB Ratio 0.8 RATIO (0.9-2.4); AST(SGOT) 42 U/L (15-37); Alanine Aminotransfer ALT/SGPT 22 U/L (13-56); Albumin, Serum 3.1 g/dL (3.2-5.0); Alkaline Phosphatase 167 U/L (45-117); Anion Gap 10 (5-15); BUN 27 mg/dL (7-18); BUN/Creat Ratio 21.3 RATIO (10-20); Calcium,Total 9.1 mg/dL (8.5-10.1); Chloride 100 mmol/L (98-107); Creatinine, Serum 1.27 mg/dL (0.55-1.02); EST Glomerular Filtration Rate 44 mL/min (>60); Est Glom Filt Rate - Afr Amer 53 mL/min (>60); Estimated Creatinine Clearance 30.21 ml/min; Glucose 126 mg/dL (74-106); Potassium 4.6 mmol/L (3.5-5.1); Protein, Total 7.1 g/dL (6.4-8.2); Sodium Level 136 mmol/L (136-145)
[2017-08-16 08:27] LABS: Anisocytosis 1+
[2017-08-16 10:00] VITALS: PULSE 67; O2SAT 98
--- NOTE | 2017-08-16 10:34 | NURSING ---
Per dustin Shepherd to discharge patient home today. D/C medrol dose pack and rifaximin.
--- NOTE | 2017-08-16 10:39 | NURSING ---
50 ml of sanguinous fluid drained from bili drain. Reported finding to chargeback analyst, Aggie.
[2017-08-16 11:37] VITALS: BP 149/63; PULSE 76; RESP 14; TEMP 36.4; O2SAT 96
--- NOTE | 2017-08-17 07:41 | MDS.RN ---
Pain interview for MARGO 08/15/17 completed on 08/14/17.
[2017-08-17 09:36] LABS: Pathologist Comment/Body Fluid Reviewed
--- NOTE | 2017-08-17 14:28 | CASEMGMT ---
Insurance Notified insurance of resident discharge on 08/16/17 to home with family and outpatient physical therapy. Auth#[id number] Kiera HUTCHINSON, ASSESSMENT RN
--- NOTE | 2017-08-28 10:05 | MDS.RN ---
Information for the mds was obtained from review of the clinical record, interview of resident, staff, and direct observation of resident's care.
== END 2017-08-16 11:30 | disposition home or self-care (01) | DRG 949 ==
PROVIDERS: Admitting Provider Family Medicine Geriatric Medicine; Family Provider Family Medicine; PCP Family Medicine; Visit Provider Family Medicine Geriatric Medicine
DX: Z48.815 Encounter for surgical aftercare following surgery on the digestive system (principal); R78.81 Bacteremia; K76.6 Portal hypertension; K80.42 Calculus of bile duct with acute cholecystitis without obstruction; R18.8 Other ascites; B96.20 Unspecified Escherichia coli [E. coli] as the cause of diseases classified elsewhere; K80.20 Calculus of gallbladder without cholecystitis without obstruction; E03.9 Hypothyroidism, unspecified; K75.81 Nonalcoholic steatohepatitis (NASH); K21.9 Gastro-esophageal reflux disease without esophagitis; I12.9 Hypertensive chronic kidney disease with stage 1 through stage 4 chronic kidney disease, or unspecified chronic kidney disease; N18.9 Chronic kidney disease, unspecified; I25.10 Atherosclerotic heart disease of native coronary artery without angina pectoris; Z95.1 Presence of aortocoronary bypass graft; Z79.899 Other long term (current) drug therapy; Z87.891 Personal history of nicotine dependence; I27.20 Pulmonary hypertension, unspecified
CPT/HCPCS: 36415; 80048; 80053; 81001; 85025; 87070; 87075; 87205; 89050; 90732; 97110; 97116; 97161; 97165; 97530; 97535; 97802; J7030

== ENCOUNTER 2018-02-09 12:52 | Inpatient (IN) | payer OTHER, MEDICARE, SELFPAY ==
[2018-02-09] VITALS (16 sets, daily range): BP systolic 92–113; BP diastolic 36–80; PULSE 75–89; RESP 16–29; TEMP 36.4–37.6; O2SAT 91–100; BMI 23.4; BMI 23.1
--- NOTE | 2018-02-09 13:42 | RAD_ITS ---
STUDY: X-RAY CHEST REASON FOR EXAM: Female, 72 years old. Increasing shortness of breath. Hypotension. Recent gallbladder surgery. TECHNIQUE: Single AP portable view of the chest. COMPARISON: Comparison is made with prior study dated March 26, 2009. FINDINGS: There is elevation of the right hemidiaphragm. Small right pleural effusion with underlying infiltration and/or atelectasis. Left lung is clear. Sternal cerclage wires and vascular clips are present from a prior sternotomy and coronary artery bypass graft procedure (CABG). Normal mediastinum and kalpana. Normal visualized pulmonary arteries. There is atherosclerotic calcification of the aortic arch with tortuosity. There are diffuse degenerative changes of the visualized thoracic spine. Normal visualized ribs, clavicles, and shoulders. There is no demonstrated abnormality of the visualized soft tissue structures of the upper abdomen. RAD/Chest 1 View (Portable) IMPRESSION: Small right pleural effusion with underlying infiltration and/or atelectasis. Electronically Signed: Ricardo Perry MD at 14:15 EDT Tel [phone], Service support ,
--- NOTE | 2018-02-09 13:42 | EKG12_ITS ---
Test Reason : ABN LABS Blood Pressure : / mmHG Vent. Rate : 078 BPM Atrial Rate : 078 BPM P-R Int : 146 ms QRS Dur : 094 ms QT Int : 416 ms P-R-T Axes : -27 095 017 degrees QTc Int : 474 ms Normal sinus rhythm Rightward axis Borderline ECG Confirmed by SHEEBA LOZANO, LEOPOLDO ([id number]), publication editor ANTONIO TREVIÑO ([id number]) on 02/17/2018 1:33:24 PM Referred By: Efra Larios Confirmed By:LEOPOLDO ALY MD
[2018-02-09 14:06] LABS: Differential Indicated MANUAL DIFF; Hematocrit 34.2 % (37-47); Hemoglobin 11.7 g/dl (12.0-15.0); Mean Corp Hgb Conc 34.2 g/gl (32-36); Mean Corpuscular Hgb 34.7 pg (27.0-32.0); Mean Corpuscular Volume 101.5 fL (81-99); Mean Platelet Vol. 10.6 fl (6.2-12.0); POSITIVE COUNT YES; POSITIVE DIFFERENTIAL YES; POSITIVE MORPHOLOGY YES; Platelet Count 81 K/mm3 (150-450); RBC Distribution Width CV 15.2 % (11.6-14.6); RBC Distribution Width SD 54.8 fl (35.1-43.9); Red Blood Count 3.37 M/mm3 (4.2-5.4)
[2018-02-09] MEDS: 0.9% Normal Saline 1,000 ML IV.SOLN. 1700 ML IV (14:07)
[2018-02-09 14:22] LABS: Hypochromasia 1+; Lymphocyte 7 % (19-41); Metamyelocyte 4 % (0-1); Monocyte 8 % (0-10); Neutrophil-Band 5 % (0-5); Neutrophil-Segmented 76 % (47-70); Platelet Estimate MOD DEC (ADEQ); Total Cells Counted 100 (MANUAL DIFF)
[2018-02-09 14:23] LABS: Absolute Lymphocyte Count 1.12 X10^3/ul (0.83-4.51)
[2018-02-09 14:28] LABS: ALB/GLOB Ratio 0.8 RATIO (0.9-2.4); AST(SGOT) 98 U/L (15-37); Alanine Aminotransfer ALT/SGPT 44 U/L (13-56); Albumin, Serum 2.8 g/dL (3.2-5.0); Alkaline Phosphatase 123 U/L (45-117); Anion Gap 8 (5-15); BUN 26 mg/dL (7-18); BUN/Creat Ratio 18.7 RATIO (10-20); Chloride 106 mmol/L (98-107); Creatinine, Serum 1.39 mg/dL (0.55-1.02); EST Glomerular Filtration Rate 39 mL/min (>60); Est Glom Filt Rate - Afr Amer 48 mL/min (>60); Estimated Creatinine Clearance 25.89 ml/min; Globulin 3.7 g/dL (2.2-4.2); Glucose 58 mg/dL (74-106); Lipase 92 U/L (73-393); Potassium 4.1 mmol/L (3.5-5.1); Protein, Total 6.5 g/dL (6.4-8.2); Sodium Level 139 mmol/L (136-145)
[2018-02-09 14:33] LABS: Lactic Acid 3.5 mmol/L (0.4-2.0)
--- NOTE | 2018-02-09 14:33 | ED.RN ---
lab resulted lactic 3.5, physician notified
[2018-02-09] MEDS: Piperacil/Tazobactam 3.375 GM/50 ML ML IV (14:37)
--- NOTE | 2018-02-09 14:38 | US_ITS ---
STUDY: ABDOMINAL ULTRASOUND -4 quadrants. REASON FOR VISIT: Female, 72 years old. Assessment for ascites and possible paracentesis. TECHNIQUE: Ultrasound evaluation of the 4 quadrants was performed with real-time and static oneil-scale imaging. TECHNICAL QUALITY: Adequate. COMPARISON: None. FINDINGS: There is a small amount of perihepatic fluid. Not enough fluid seen for paracentesis. Small right pleural effusion. US/Abdomen Limited IMPRESSION: Not enough fluid for safe paracentesis. Small right pleural effusion. Electronically Signed: Ricardo Perry MD at 13:13 EDT Tel [phone], Service support ,
[2018-02-09 14:46] LABS: Partial Thromboplast Time 42.8 Seconds (24.1-36.2); Prothrombin Time (Protime)PT. 22.8 SECONDS (11.7-14.9)
--- NOTE | 2018-02-09 15:42 | ED.DCSUM_ITS ---
- ER Visit Summary Date of Service: 02/09/18 Chief Complaint: Black stool, dark urine status post gallbladder stent yesterday History of Present Illness: The patient is a 72 F who has history of colon lithiasis and cholecystitis who is not an operative candidate had her percutaneous tube removed yesterday at the [facility]. A stent was placed. She presents because of concern for black stool. She also complains of lightheadedness, generalized weakness with abdominal pain and shortness of breath. She has not a good informant. Patient has a past medical history of coronary disease, hypercholesterolemia, end-stage renal disease, portal hypertension, pulmonary hypertension and ascites. Physical Examination: Patient is hypotensive with mean arterial pressure less than 65. She is not febrile. Patient appears jaundiced with scleral icterus. Pupils equal round reactive paradoxic muscle intact. Conjunctive appears pale. Uvula midline. No erythema XA posterior pharynx. Trachea midline. Lungs reveal no wheeze rales or rhonchi with good movement of air bilaterally. Heart is regular without murmur, gallop or rub. Abdomen is distended tympanitic with peritoneal findings. No evidence of infection port site. She is alert and oriented x3. Neuro exam is nonfocal. Test Results: White count is 16,000 with 81 segs, 5 bands and metamyelocytes. BUN and creatinine are 26 1.39. Total bilirubin is 2.6. Alk phos and AST are elevated 123 and 98 respectively. Lipase is normal. Lactate is elevated at 3.5. Emergency Department Course and Treatment: With recent intra-abdominal procedure and perineal findings can concern for exacerbation of her chronic cholecystitis, pancreatitis, bacterial peritonitis. Since she is hypotensive with mean arterial pressure less than 65 she received a 30 cc/kg bolus and 4.5 g of Zosyn for intra-abdominal coverage. Patient did respond to fluids. Dr. Tsai inform me there is minimal ascitic fluid and not amenable to ultrasound-guided paracentesis. He did inform me there is a small right pleural effusion. Treatment Plan: Dr. Maldonado 3. To perform ultrasound-guided paracentesis for diagnostic tests. She will require admission. Disposition: Admit PCU stepdown versus ICU Impression: 1. Severe sepsis 2. Hypotensive, fluid responsive 3. Renal insufficiency 4. Jaundice 5. Cholelithiasis with probable cholecystitis nonoperable 6. Small right pleural effusion This note was generated with Dragon dictation software. It may contain incorrect words, spelling, and punctuation that were not noted in review of the chart prior to signing ED Disposition - Plan for ED Patient: Chief Complaint: Abn Labs Referrals: Fish Becerril [Primary Care Provider] -
--- NOTE | 2018-02-09 16:13 | NURSING ---
DR ALEJANDRO FOR DR VARGAS
--- NOTE | 2018-02-09 16:35 | NURSING ---
PCU ABD PAIN KOTSONIS
[2018-02-09 17:59] LABS: Reflex Lactate? Y
[2018-02-09] MEDS: 0.9% Normal Saline 1,000 ML 100 ML IV (18:42)
[2018-02-09 19:00] LABS: Lactic Acid 3.1 mmol/L (0.4-2.0)
--- NOTE | 2018-02-09 22:47 | PCM.HP.STD ---
Problem List (1) Cholelithiasis Status: Chronic (2) Abdominal pain Status: Acute (3) Hypothyroidism Status: Chronic (4) Cirrhosis Status: Chronic (5) Pulmonary hypertension Status: Chronic (6) Ascites Status: Chronic (7) Chronic kidney disease Status: Chronic (8) Coronary artery disease Status: Chronic (9) Portal hypertension Status: Acute History of Present Illness Date of Admission: 02/09/18 Chief Complaint: Abdominal pain The patient is a 72 year old F with a PMH as above who presents one day after a procedure at the [facility]. She refuses to go back. She has cholelithiasis, however she is not an operative candidate given her very poor cardiac function if I have surgery my heart will stop. She had a PTC tube placed and then was in TCU for a few weeks in august. The tube was removed and the biliary stent was placed via endoscopy at the [facility] yesterday. She presents to our ER with a leukocytosis, abdominal pain that began today and tachypnea. She was given a dose of Zosyn in the ER as well as fluid and admitted for possible SBP. Of not her INR is 2.0 without medication, her lactic acid was elevated to 3.5 and decreased to 3.1 with IVF. Past Medical History Past Medical History (Chronic Problems): Chronic Problems Cholelithiasis (Chronic) Hypothyroidism (Chronic) GODOY (nonalcoholic steatohepatitis) (Chronic) Cirrhosis (Chronic) Pulmonary hypertension (Chronic) Ascites (Chronic) Chronic kidney disease (Chronic) Coronary artery disease (Chronic) Allergies Sulfa (Sulfonamide Antibiotics) Allergy (Verified 02/09/18 12:56) Hives Home Medications: Ambulatory Orders Medication Instructions Recorded Furosemide [Lasix] 40 mg PO DAILY 08/01/17 Levothyroxine [Synthroid] 25 mcg PO DAILY 08/01/17 Omeprazole 40 mg PO DAILY 08/01/17 Rifaximin [Xifaxan] 550 mg PO BID #60 tab 08/11/17 Lactulose [Chronulac] 30 ml PO TID #2700 ml 08/16/17 Ciprofloxacin HCl 500 mg PO BID 02/09/18 Hydroxyzine HCl 10 mg PO BID 02/09/18 Spironolactone [Aldactone] 100 mg PO BID 02/09/18 l Acidophil/B Lactis/B Longum 1 cap PO DAILY 02/09/18 [Florajen3 Capsule] Surgical History: coronary bypass surgery - x 3 (2012), - - 07/26/2017 cholecystostomy tube placement. 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 Denies: Fever, Weight Change HEENT: Denies: Head Aches, Sinus Congestion, Sinus Drainage Cardiovascular: Denies: Chest Pain, Palpitations Respiratory: Denies: Cough, Shortness of breath at rest, Sputum production Gastrointestinal: Reports: Abdominal Pain. Denies: Nausea, Vomiting Genitourinary: Denies: Dysuria Musculoskeletal: Denies: Joint Pain, Joint Tenderness Skin: Denies: Rash, Wounds Neurological: Denies: Numbness, Tingling, Focal weakness Psychiatric: Denies: Anxiety, Depression Hematologic/ Lymphatic: Denies: Easy Bruising, Easy Bleeding VTE Information - Inpt Only VTE Present on Admission: No - Physical Exam General: Alert, Oriented x3, Cooperative, No apparent distress HEENT: Atraumatic, PERRLA, EOMI, Normocephalic Neck: Supple, No JVD Lungs: Clear to auscultation, Normal air movement, No rhonchi, No wheeze, No rales Cardiovascular: Regular rate, Regular Rhythm, Normal S1, Normal S2, Murmur - 3/6 systolic Abdomen: Soft, Non-Distended, No Hepato-splenomegaly, Tender - diffusely tender Extremities: No edema, Capillary Refill Less than 3 Seconds Skin: No rashes, No breakdown Musculoskeletal: No Tenderness to Palpation of Joints or Extremities Neurological: Neuro grossly intact, Sensory exam intact to light touch and pain Psych/Mental Status: Normal Affect, Appropriate Vital Signs Temp Pulse Resp BP Pulse Ox 99.7 F H 81 20 H 94/45 L 95 02/09/18 22:00 02/09/18 22:00 02/09/18 22:00 02/09/18 22:00 02/09/18 22:00 Oxygen Flow Rate (L/min) 2 Oxygen Delivery Method Nasal Cannula Weight: 122 lb 2.177 oz Body Mass Index (BMI) 23.1 Laboratory Tests Past 24 Hrs 02/09/18 02/09/18 02/09/18 13:50 13:50 13:50 WBC 16.0 H RBC 3.37 L Hgb 11.7 L Hct 34.2 L MCV 101.5 H MCH 34.7 H MCHC 34.2 RDW 15.2 H RDW Differential 54.8 H Plt Count 81 L MPV 10.6 Neut % (Auto) Not Reportable Absolute Neuts (auto) 13.0 H Absolute Lymphs (auto) 1.12 Total Counted 100 Neutrophils % (Manual) 76 H Band Neutrophils % 5 Lymphocytes % (Manual) 7 L Monocytes % (Manual) 8 Metamyelocytes % 4 H Diff Path Review May foll Platelet Estimate MOD DEC Hypochromasia 1+ PT Cancelled INR Cancelled APTT Cancelled Sodium 139 Potassium 4.1 Chloride 106 Carbon Dioxide 25.0 Anion Gap 8 BUN 26 H Creatinine 1.39 H Estim Creat Clear Calc 25.89 Est GFR (MDRD) Af Amer 48 L Est GFR (MDRD) Non-Af 39 L BUN/Creatinine Ratio 18.7 Glucose 58 L Lactic Acid Calcium 9.0 Total Bilirubin 2.60 H AST 98 H ALT 44 Alkaline Phosphatase 123 H Total Protein 6.5 Albumin 2.8 L Globulin 3.7 Albumin/Globulin Ratio 0.8 L Lipase 92 02/09/18 02/09/18 02/09/18 13:50 14:20 18:18 WBC RBC Hgb Hct MCV MCH MCHC RDW RDW Differential Plt Count MPV Neut % (Auto) Absolute Neuts (auto) Absolute Lymphs (auto) Total Counted Neutrophils % (Manual) Band Neutrophils % Lymphocytes % (Manual) Monocytes % (Manual) Metamyelocytes % Diff Path Review Platelet Estimate Hypochromasia PT 22.8 H INR 2.0 APTT 42.8 H Sodium Potassium Chloride Carbon Dioxide Anion Gap BUN Creatinine Estim Creat Clear Calc Est GFR (MDRD) Af Amer Est GFR (MDRD) Non-Af BUN/Creatinine Ratio Glucose Lactic Acid 3.5 H 3.1 H Calcium Total Bilirubin AST ALT Alkaline Phosphatase Total Protein Albumin Globulin Albumin/Globulin Ratio Lipase Assessment/Plan All Active Problems E coli bacteremia (Acute) Acute cholecystitis (Acute) Hyperbilirubinemia (Acute) Abdominal pain (Acute) Portal hypertension (Acute) 1. Sepsis secondary to possible SBP/Cirrhosis with ascites/Chronic cholelithiasis - Initially she was going to have a paracentesis however the fluid was not in an area to be drained per report from the ER - Given the recent instrumentation of her biliary tree will treat for SBP - Do not have cefuroxime, so will do rocephin 2 gm Daily - IVF@100 given her cardiac function, could not find an echo to corroborate her cardiac concern, though she does have a significant murmur - Will obtain echo in the am - Her MELD-Na is 21 with a 7-10% mortality rate at 90 days - She wants to be full code - Can continue with xifaxin and lactulose, hold diuresis for now 2. Hypothyroidism - stable - c/w synthroid 3. GERD - stable - c/w PPI DVT: None, INR is 2.0 Code Visit Inpatient E&M: 34284 Init Hosp L3
--- NOTE | 2018-02-09 22:53 | HP.PCM_ITS ---
Problem List (1) Cholelithiasis Status: Chronic (2) Abdominal pain Status: Acute (3) Hypothyroidism Status: Chronic (4) Cirrhosis Status: Chronic (5) Pulmonary hypertension Status: Chronic (6) Ascites Status: Chronic (7) Chronic kidney disease Status: Chronic (8) Coronary artery disease Status: Chronic (9) Portal hypertension Status: Acute History of Present Illness Date of Admission: 02/09/18 Chief Complaint: Abdominal pain The patient is a 72 year old F with a PMH as above who presents one day after a procedure at the [facility]. She refuses to go back. She has cholelithiasis, however she is not an operative candidate given her very poor cardiac function if I have surgery my heart will stop. She had a PTC tube placed and then was in TCU for a few weeks in august. The tube was removed and the biliary stent was placed via endoscopy at the [facility] yesterday. She presents to our ER with a leukocytosis, abdominal pain that began today and tachypnea. She was given a dose of Zosyn in the ER as well as fluid and admitted for possible SBP. Of not her INR is 2.0 without medication, her lactic acid was elevated to 3.5 and decreased to 3.1 with IVF. Past Medical History Past Medical History (Chronic Problems): Chronic Problems Cholelithiasis (Chronic) Hypothyroidism (Chronic) GODOY (nonalcoholic steatohepatitis) (Chronic) Cirrhosis (Chronic) Pulmonary hypertension (Chronic) Ascites (Chronic) Chronic kidney disease (Chronic) Coronary artery disease (Chronic) Allergies Sulfa (Sulfonamide Antibiotics) Allergy (Verified 02/09/18 12:56) Hives Home Medications: Ambulatory Orders Medication Instructions Recorded Furosemide [Lasix] 40 mg PO DAILY 08/01/17 Levothyroxine [Synthroid] 25 mcg PO DAILY 08/01/17 Omeprazole 40 mg PO DAILY 08/01/17 Rifaximin [Xifaxan] 550 mg PO BID #60 tab 08/11/17 Lactulose [Chronulac] 30 ml PO TID #2700 ml 08/16/17 Ciprofloxacin HCl 500 mg PO BID 02/09/18 Hydroxyzine HCl 10 mg PO BID 02/09/18 Spironolactone [Aldactone] 100 mg PO BID 02/09/18 l Acidophil/B Lactis/B Longum 1 cap PO DAILY 02/09/18 [Florajen3 Capsule] Surgical History: coronary bypass surgery - x 3 (2012), - - 07/26/2017 cholecys tostomy tube placement. Psychiatric History: No pertinent psych hx PIGMENT PUMPER History: No pertinent PIGMENT PUMPER history Smoking Status: Former smoker Tobacco Use: Cigarettes Alcohol: None Drugs: None - *Family History Maternal History Items: No pertinent history Paternal History Items: No pertinent history Review of Systems Constitutional: Reports: Chills. Denies: Fever, Weight Change HEENT: Denies: Head Aches, Sinus Congestion, Sinus Drainage Cardiovascular: Denies: Chest Pain, Palpitations Respiratory: Denies: Cough, Shortness of breath at rest, Sputum production Gastrointestinal: Reports: Abdominal Pain. Denies: Nausea, Vomiting Genitourinary: Denies: Dysuria Musculoskeletal: Denies: Joint Pain, Joint Tenderness Skin: Denies: Rash, Wounds Neurological: Denies: Numbness, Tingling, Focal weakness Psychiatric: Denies: Anxiety, Depression Hematologic/ Lymphatic: Denies: Easy Bruising, Easy Bleeding VTE Information - Inpt Only VTE Present on Admission: No - Physical Exam General: Alert, Oriented x3, Cooperative, No apparent distress HEENT: Atraumatic, PERRLA, EOMI, Normocephalic Neck: Supple, No JVD Lungs: Clear to auscultation, Normal air movement, No rhonchi, No wheeze, No rales Cardiovascular: Regular rate, Regular Rhythm, Normal S1, Normal S2, Murmur - 3/6 systolic Abdomen: Soft, Non-Distended, No Hepato-splenomegaly, Tender - diffusely tender Extremities: No edema, Capillary Refill Less than 3 Seconds Skin: No rashes, No breakdown Musculoskeletal: No Tenderness to Palpation of Joints or Extremities Neurological: Neuro grossly intact, Sensory exam intact to light touch and pain Psych/Mental Status: Normal Affect, Appropriate Vital Signs Temp Pulse Resp BP Pulse Ox 99.7 F H 81 20 H 94/45 L 95 02/09/18 22:00 02/09/18 22:00 02/09/18 22:00 02/09/18 22:00 02/09/18 22:00 Oxygen Flow Rate (L/min) 2 Oxygen Delivery Method Nasal Cannula Weight: 122 lb 2.177 oz Body Mass Index (BMI) 23.1 Laboratory Tests Past 24 Hrs 02/09/18 02/09/1818 13:50 13:50 13:50 WBC 16.0 H RBC 3.37 L Hgb 11.7 L Hct 34.2 L MCV 101.5 H MCH 34.7 H MCHC 34.2 RDW 15.2 H RDW Differential 54.8 H Plt Count 81 L MPV 10.6 Neut % (Auto) Not Reportable Absolute Neuts (auto) 13.0 H Absolute Lymphs (auto) 1.12 Total Counted 100 Neutrophils % (Manual) 76 H Band Neutrophils % 5 Lymphocytes % (Manual) 7 L Monocytes % (Manual) 8 Metamyelocytes % 4 H Diff Path Review May foll Platelet Estimate MOD DEC Hypochromasia 1+ PT Cancelled INR Cancelled APTT Cancelled Sodium 139 Potassium 4.1 Chloride 106 Carbon Dioxide 25.0 Anion Gap 8 BUN 26 H Creatinine 1.39 H Estim Creat Clear Calc 25.89 Est GFR (MDRD) Af Amer 48 L Est GFR (MDRD) Non-Af 39 L BUN/Creatinine Ratio 18.7 Glucose 58 L Lactic Acid Calcium 9.0 Total Bilirubin 2.60 H AST 98 H ALT 44 Alkaline Phosphatase 123 H Total Protein 6.5 Albumin 2.8 L Globulin 3.7 Albumin/Globulin Ratio 0.8 L Lipase 92 02/09/18 02/09/18 02/09/18 13:50 14:20 18:18 WBC RBC Hgb Hct MCV MCH MCHC RDW RDW Differential Plt Count MPV Neut % (Auto) Absolute Neuts (auto) Absolute Lymphs (auto) Total Counted Neutrophils % (Manual) Band Neutrophils % Lymphocytes % (Manual) Monocytes % (Manual) Metamyelocytes % Diff Path Review Platelet Estimate Hypochromasia PT 22.8 H INR 2.0 APTT 42.8 H Sodium Potassium Chloride Carbon Dioxide Anion Gap BUN Creatinine Estim Creat Clear Calc Est GFR (MDRD) Af Amer Est GFR (MDRD) Non-Af BUN/Creatinine Ratio Glucose Lactic Acid 3.5 H 3.1 H Calcium Total Bilirubin AST ALT Alkaline Phosphatase Total Protein Albumin Globulin Albumin/Globulin Ratio Lipase Assessment/Plan All Active Problems E coli bacteremia (Acute) Acute cholecystitis (Acute) Hyperbilirubinemia (Acute) Abdominal pain (Acute) Portal hypertension (Acute) 1. Sepsis secondary to possible SBP/Cirrhosis with ascites/Chronic cholelithiasis - Initially she was going to have a paracentesis however the fluid was not in an area to be drained per report from the ER - Given the recent instrumentation of her biliary tree will treat for SBP - Do not have cefuroxime, so will do rocephin 2 gm Daily - IVF@100 given her cardiac function, could not find an echo to corroborate her cardiac concern, though she does have a significant murmur - Will obtain echo in the am - Her MELD-Na is 21 with a 7-10% mortality rate at 90 days - She wants to be full code - Can continue with xifaxin and lactulose, hold diuresis for now 2. Hypothyroidism - stable - c/w synthroid 3. GERD - stable - c/w PPI DVT: None, INR is 2.0 Code Visit Inpatient E&M: 43220 Init Hosp L3
--- NOTE | 2018-02-09 23:01 | ECHOD_ITS ---
Reason For Study: MURMUR Procedure This was a 2D Doppler, Color Flow transthoracic echocardiogram. Exam performed portable in patient room. Left Ventricle Normal size and thickness. The estimated ejection fraction is 60 %. Right Ventricle Normal size and thickness. Normal systolic function. Atria Normal left atrium. Normal right atrium. Normal atrial septum. Mitral Valve Mild diffuse mitral valve thickening. Mild mitral annular calcification extending into the posterior leaflet. Mild-Moderate (1-2+) posteriorly directed mitral valve insufficiency. Tricuspid Valve Normal tricuspid valve. Mild (1+) tricuspid valve insufficiency. Right ventricular systolic pressure estimated to be 28 mmHg. Aortic Valve Trisinus/trileaflet aortic valve. Severe diffuse aortic valve thickening. Moderate focal aortic valve calcification. Severe restriction of the aortic valve. Severe aortic stenosis. Peak aortic valve gradient 57 mmHg. Mean aortic valve gradient 37 mmHg. Calculated aortic valve area (continuity equation) is 0.90 cm2. Trivial aortic valve insufficiency. Pulmonic Valve Normal pulmonic valve. Great Vessels Normal aortic root. Normal arch. Normal inferior vena cava. Inferior vena cava collapse with sniff. Pericardium/Pleural No pericardial effusion. MMode/2D Measurements & Calculations RVDd: 3.1 cm LVOT diam: 2.2 cm Ao root diam: 3.0 cm LVOT area: 3.8 cm2 LAV(MOD-bp): 62.5 ml LA A4 area: 16.4 cm2 LA dimension(2D): 4.6 cm LAV(MOD-bp) Indexed: 40.8 ml/m2 LAV(MOD-sp2): 68.1 ml LAV(MOD-sp4): 48.2 ml RA A4 area: 13.6 cm2 Time Measurements MV dec time: 0.14 sec Doppler Measurements & Calculations MV E max vince: 112.7 cm/sec Lat Peak E' Vince: 11.5 cm/sec Med Peak E' Vince: 7.5 cm/sec MV A max vince: 46.5 cm/sec E/E' lat: 9.8 E/E' med: 15.1 MV E/A: 2.4 Ao V2 max: 361.8 cm/sec AI max vince: 397.4 cm/sec LV V1 max: 89.8 cm/sec Ao max P.5 mmHg AI max P.2 mmHg LV V1 max P.2 mmHg Ao V2 mean: 274.8 cm/sec AI dec slope: 358.5 cm/sec2 LV V1 mean P.8 mmHg Ao mean P.9 mmHg AI P1/2t: 324.6 msec LV V1 mean: 63.5 cm/sec Ao V2 VTI: 92.6 cm LV V1 VTI: 21.8 cm MEHDI(I,D): 0.90 cm2 MEHDI(V,D): 0.95 cm2 SV(LVOT): 83.8 ml PA V2 max: 69.2 cm/sec TR max vince: 236.0 cm/sec TR max P.5 mmHg MV P1/2t-pr_phl: 71.2 msec Interpretation Summary The estimated ejection fraction is 60 %. Mild-Moderate (1-2+) posteriorly directed mitral valve insufficiency. Mild (1+) tricuspid valve insufficiency. Right ventricular systolic pressure estimated to be 28 mmHg. Severe restriction of the aortic valve. Severe aortic stenosis. Peak aortic valve gradient 57 mmHg. Mean aortic valve gradient 37 mmHg. Calculated aortic valve area (continuity equation) is 0.90 cm2. Trivial aortic valve insufficiency. Compared to echo report dated 03/30/2009, LV function has remained the same; aortic stenosis now appears severe. Ordering Physician: Efra Larios Referring Physician: Fish Becerril Performed By: Venessa Gavin, JOSE A, RVT
[2018-02-10] VITALS (15 sets, daily range): BP systolic 90–129; BP diastolic 42–70; PULSE 65–84; RESP 11–21; TEMP 36.1–37.3; O2SAT 92–99
[2018-02-10 04:24] LABS: Reflex Lactate? Y
[2018-02-10] MEDS: 0.9% Normal Saline 1,000 ML 100 ML IV ×2 (04:28→15:36)
[2018-02-10] MEDS: Levothyroxine 25 MCG TABLET PO (05:31)
[2018-02-10 06:59] LABS: Absolute Lymphocyte Count 1.52 X10^3/ul (0.83-4.51); Absolute Neutrophil Count 8.7 X10^3/uL (2.0-7.7); Basophil# 0.03 X10^3/uL; Basophil% 0.3 % (0-1); Eosinophils% 0.8 % (0-5); Hematocrit 29.1 % (37-47); Hemoglobin 9.7 g/dl (12.0-15.0); Lymphocyte # 1.52 X10^3/ul (4.0); Lymphocyte % 12.8 % (19-41); Mean Corp Hgb Conc 33.3 g/gl (32-36); Mean Corpuscular Hgb 34.5 pg (27.0-32.0); Mean Corpuscular Volume 103.6 fL (81-99); Mean Platelet Vol. 11.2 fl (6.2-12.0); Monocyte# 1.46 X10^3/uL; Monocyte% 12.3 % (0-10); Neutrophil # 8.69 X10^3/uL (2.7-7.7); Neutrophil % 73.5 % (47-70); Platelet Count 70 K/mm3 (150-450); RBC Distribution Width SD 57.9 fl (35.1-43.9); Red Blood Count 2.81 M/mm3 (4.2-5.4); White Blood Count 11.8 K/mm3 (4.4-11.0)
[2018-02-10 07:06] LABS: BUN 27 mg/dL (7-18); BUN/Creat Ratio 25.7 RATIO (10-20); Calcium,Total 7.5 mg/dL (8.5-10.1); Chloride 111 mmol/L (98-107); Creatinine, Serum 1.05 mg/dL (0.55-1.02); EST Glomerular Filtration Rate 55 mL/min (>60); Est Glom Filt Rate - Afr Amer 66 mL/min (>60); Estimated Creatinine Clearance 36.01 ml/min; Glucose 66 mg/dL (74-106); Potassium 3.6 mmol/L (3.5-5.1); Sodium Level 141 mmol/L (136-145)
[2018-02-10 07:07] LABS: Anion Gap 8 (5-15)
[2018-02-10 07:13] LABS: POSITIVE COUNT NO; POSITIVE DIFFERENTIAL NO; POSITIVE MORPHOLOGY NO
--- NOTE | 2018-02-10 08:09 | US_ITS ---
STUDY: ABDOMINAL ULTRASOUND - RIGHT UPPER QUADRANT REASON FOR VISIT: Female, 72 years old. Jaundice. Evaluate for cholangitis. TECHNIQUE: Ultrasound evaluation of the right upper quadrant was performed with real-time and static oneil-scale imaging. TECHNICAL QUALITY: Limited by patient condition. COMPARISON: 02/09/2018 FINDINGS: Liver: The liver measures 13.1 cm. The liver is nodular in contour and heterogeneous in echotexture. The bile ducts are within normal limits. There is hepatic color flow. The direction of portal flow is hepatopetal. There is no demonstrated mass lesion. Gallbladder: Normal distended gallbladder. The gallbladder wall measures 8 mm. There is a negative sonographic Maguire's sign. There is no pericholecystic fluid. There are gallstones and sludge noted in the gallbladder. Common Bile Duct (C.B.D.): The common bile duct measures 4 mm. There is a stent in the common bile duct. Pancreas: Normal size of the head, body and tail of the pancreas. There is normal echogenicity of the pancreas. There is no pancreatic mass identified. There are vascular calcifications noted adjacent to the pancreas. Right Kidney: Normal size of the right kidney. The right kidney measures 9.0 cm. Normal renal cortex. There is no demonstrated renal mass or cyst. There is no right hydronephrosis. There is ascites noted. There is a right-sided pleural effusion. US/Liver IMPRESSION: Ascites. Right pleural effusion. Cirrhotic liver. No focal hepatic lesions identified. Please note that CT and MRI are more sensitive for the detection of hepatic lesion in the setting of cirrhosis. Gallstones and sludge noted in the gallbladder. Gallbladder wall thickening which is a nonspecific finding in the setting of ascites. Common bile duct stent in place. No biliary duct dilatation. Electronically Signed: Graeme Dunn, at 16:05 EDT Tel , Service support ,
--- NOTE | 2018-02-10 08:23 | PN_ITS ---
Subjective: Chief complaint: Follow-up after admission for severe sepsis due to probable cholecystitis versus ascending cholangitis as well as right-sided pleural effusion. Patient seen and examined. No acute events overnight. This morning, she mentioned that her abdominal pain is getting better but bridge tender. She denied nausea or vomiting. She denies fever chills. This patient had a complicated history, had recent nonoperable cholecystitis status post percutaneous cholecystostomy that was removed 3 days ago and she had a stent placed in her biliary tree. That was done at [facility]. At this time, she is afebrile, blood pressure and heart rate are stable, pulse ox is 98% on 2 L. - Physical Exam General: Alert, Oriented x3, Cooperative, No apparent distress HEENT: Atraumatic, PERRLA, EOMI, Normocephalic Oral: Moist Mucosa, No Gingival or Mucosal Lesions/ Ulcerations Neck: Supple, No JVD, Negative Carotid Bruits, Trachea Midline, Thyroid Normal Size and Texture Lungs: No wheeze, No rales, Rhonchi, - - Decreased breath sounds in the right base, rhonchi. Cardiovascular: Regular rate, Regular Rhythm, Normal S1, Normal S2, Murmur - Systolic murmur. Abdomen: Bowel Sounds Present, Non-Distended, No Hepato-splenomegaly, Tender - Significant localized right upper quadrant tenderness, no guarding or rigidity. Extremities: No clubbing, No cyanosis, No edema Skin: No rashes, No breakdown Lymphatic: No Cervical, Supraclavicular, or Inguinal Adenopathy Neurological: Cranial nerves II-XII grossly intact, Motor Exam 5/5 strength throughout Psych/Mental Status: Normal Affect, Appropriate, Alert and oriented to time, place, person, mood and affect Vital Signs Temp Pulse Resp BP Pulse Ox 98.7 F 69 19 H 100/53 L 98 02/10/18 05:00 02/10/18 07:09 02/10/18 05:00 02/10/18 05:00 02/10/18 05:00 Oxygen Flow Rate (L/min) 2 Oxygen Delivery Method Nasal Cannula Weight: 122 lb 2.177 oz Body Mass Index (BMI) 23.1 Intake and Output for Last 24 Hours 02/08/18 02/09/18 02/10/18 23:59 23:59 23:59 Intake Total 909 / 909 750 / 750 Balance 909 / 909 750 / 750 Laboratory Tests Past 24 Hrs 02/09/18 02/09/18 02/09/18 13:50 13:50 13:50 WBC 16.0 H RBC 3.37 L Hgb 11.7 L Hct 34.2 L MCV 101.5 H MCH 34.7 H MCHC 34.2 RDW 15.2 H RDW Differential 54.8 H Plt Count 81 L MPV 10.6 Immature Gran % (Auto) Neut % (Auto) Not Reportable Lymph % (Auto) [place] % (Auto) Eos % (Auto) Baso % (Auto) Absolute Neuts (auto) 13.0 H Absolute Lymphs (auto) 1.12 Total Counted 100 Neutrophils % (Manual) 76 H Band Neutrophils % 5 Lymphocytes % (Manual) 7 L Monocytes % (Manual) 8 Metamyelocytes % 4 H Diff Path Review May foll Platelet Estimate MOD DEC Hypochromasia 1+ PT Cancelled INR Cancelled APTT Cancelled Sodium 139 Potassium 4.1 Chloride 106 Carbon Dioxide 25.0 Anion Gap 8 BUN 26 H Creatinine 1.39 H Estim Creat Clear Calc 25.89 Est GFR (MDRD) Af Amer 48 L Est GFR (MDRD) Non-Af 39 L BUN/Creatinine Ratio 18.7 Glucose 58 L Lactic Acid Calcium 9.0 Total Bilirubin 2.60 H AST 98 H ALT 44 Alkaline Phosphatase 123 H Total Protein 6.5 Albumin 2.8 L Globulin 3.7 Albumin/Globulin Ratio 0.8 L Lipase 92 02/09/18 02/09/18 02/09/18 13:50 14:20 18:18 WBC RBC Hgb Hct MCV MCH MCHC RDW RDW Differential Plt Count MPV Immature Gran % (Auto) Neut % (Auto) Lymph % (Auto) [place] % (Auto) Eos % (Auto) Baso % (Auto) Absolute Neuts (auto) Absolute Lymphs (auto) Total Counted Neutrophils % (Manual) Band Neutrophils % Lymphocytes % (Manual) Monocytes % (Manual) Metamyelocytes % Diff Path Review Platelet Estimate Hypochromasia PT 22.8 H INR 2.0 APTT 42.8 H Sodium Potassium Chloride Carbon Dioxide Anion Gap BUN Creatinine Estim Creat Clear Calc Est GFR (MDRD) Af Amer Est GFR (MDRD) Non-Af BUN/Creatinine Ratio Glucose Lactic Acid 3.5 H 3.1 H Calcium Total Bilirubin AST ALT Alkaline Phosphatase Total Protein Albumin Globulin Albumin/Globulin Ratio Lipase 02/10/18 02/10/18 02/10/18 00:10 06:22 06:22 WBC 11.8 H RBC 2.81 L Hgb 9.7 L Hct 29.1 L MCV 103.6 H MCH 34.5 H MCHC 33.3 RDW 16.0 H RDW Differential 57.9 H Plt Count 70 L MPV 11.2 Immature Gran % (Auto) 0.300 Neut % (Auto) 73.5 H Lymph % (Auto) 12.8 L [place] % (Auto) 12.3 H Eos % (Auto) 0.8 Baso % (Auto) 0.3 Absolute Neuts (auto) 8.7 H Absolute Lymphs (auto) 1.52 Total Counted Not Reportable Neutrophils % (Manual) Band Neutrophils % Lymphocytes % (Manual) Monocytes % (Manual) Metamyelocytes % Diff Path Review Platelet Estimate Hypochromasia PT INR APTT Sodium 141 Potassium 3.6 Chloride 111 H Carbon Dioxide 22.0 Anion Gap 8 BUN 27 H Creatinine 1.05 H Estim Creat Clear Calc 36.01 Est GFR (MDRD) Af Amer 66 Est GFR (MDRD) Non-Af 55 L BUN/Creatinine Ratio 25.7 H Glucose 66 L Lactic Acid 2.0 Calcium 7.5 L Total Bilirubin AST ALT Alkaline Phosphatase Total Protein Albumin Globulin Albumin/Globulin Ratio Lipase Medical Necessity - Tobacco Use Smoking Status: Former smoker Tobacco Use: Cigarettes Assessment/Plan This is a 72 years old admitted because of abdominal pain and she was found to have severe sepsis attributed to possible ascending cholangitis versus acute cholecystitis. #1 severe sepsis: Probably due to ascending cholangitis versus cholecystitis. She is on IV Rocephin as well as IV fluids. Lactic acid is back to normal. Blo od pressure stabilized, other vital signs are stable. Blood cultures are pending. White blood cell count is trending down. Plan: DC IV Rocephin, start IV Zosyn, ultrasound liver and gallbladder. #2 probable ascending cholangitis: This is based on jaundice, elevated bilirubin and right upper quadrant abdominal pain in context of biliary tree stent placement 2 days ago after removal of percutaneous cholecystostomy tube. She is on IV Rocephin, plan as above to start her on IV Zosyn. Her vital signs are stable at this time. Blood cultures are pending. Plan: Continue IV Zosyn, ultrasound gallbladder and liver. #3 acute on chronic normocytic anemia: Her baseline hemoglobin has been around 11-12 g/dL. On admission, it was 11.7 g/dL. Today's hemoglobin is 9.7 g/dL. Patient mentioned that she has been having dark black stools. Her INR is elevated at 2 because of chronic liver disease. At this time, no indication for blood transfusion. Plan: Stool for occult blood, iron studies, B12, RBC folate, transfuse if hemoglobin less than 8 g/dL. #4 thrombocytopenia/coagulopathy: Likely due to chronic liver disease. INR is 2, platelet count is 70,000. Plan to monitor CBC. #5 recent history of nonoperable acute cholecystitis: Status post removal of percutaneous cholecystostomy tube, status post biliary tree stent placement. Plan as above, IV antibiotics, IV fluids, ultrasound liver and gallbladder, repeat CMP tomorrow morning. #6 liver cirrhosis due to [place]: Continue lactulose and rifaximin. #7 hypothyroidism: Continue levothyroxine. #8 CAD status post CABG: Stable, no acute issues. EKG revealed normal sinus rhythm, no acute ischemic changes. She is not on any standard medication for CAD likely because of elevated INR and chronic low blood pressure. #9 stage III chronic kidney disease: Baseline creatinine has been around 1.2-1.4 mg with sitter. Admission creatinine is 1.39, came down to 1.07 today, stable. #9 DVT prophylaxis: SCDs. This note was generated with [employer] dictation software. It may contain incorrect words, spelling, and punctuation that were not noted in checking the note before signing. Code Visit Inpatient E&M: 11642 Subs Hosp L2
--- NOTE | 2018-02-10 09:06 | PCM.CONS.B ---
- Consult Date of Consult: 02/10/18 - Reason for Consult Chief Complaint: abdominal pain, elevated WBC History of Present Illness: 72 y/o WF with known GODOY (MELD score 19). I was consulted by hospitalist service. Patient had complained of abdominal pain after procedure at [facility]. Had elevated WBC and lactic acid upon admission. Treated with IV antibiotics and hydration. She states that she is improved this morning. WBC down to 11.8K, lactic acid normal. Complicated past history - Had presented with acute cholecystitis in July 2017, had Ecoli bacteremia. Had cholecystostomy tube placed July 2017. 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 Then cholecystostomy tube removed. Of note, gallbladder with one large stone, cannot be removed via ERCP. Patient is not a surgical candidate, however, the gallbladder and the CBD are stented open. Past Medical History: GODOY with cirrhosis and ascites coronary artery disease - last TTE EF 58% hypothyroidism Past Surgical History: CABG 2002 Medications: hydrocortisone (CORTISONE) 1 % cream Apply 1 application to affected area as needed. L acidophil/B lactis/B longum (FLORAJEN3 ORAL) Take by mouth once daily. hydrOXYzine HCl (ATARAX) 10 mg tablet Take 10 mg by mouth twice daily as needed. ammonium lactate (LAC-HYDRIN FIVE) 5 % lotn Apply to affected area as needed. rifAXIMin (RIFAXIMIN) 550 mg tab Take 550 mg by mouth twice daily. lactulose (DUPHALAC, CONSTULOSE) 20 gram/30 mL solution 30 mL by ORAL/FEEDING TUBE route three times daily. (Patient taking differently: Take 20 g by mouth twice daily. spironolactone (ALDACTONE) 100 mg tablet Take 150 mg by mouth once daily. furosemide (LASIX) 40 mg tablet Take 40 mg by mouth twice daily. *patient states she only takes this once a day* OMEPRAZOLE MAGNESIUM ORAL Take 40 mg by mouth once daily. Levothyroxine 25 mcg cap Take by mouth once daily. ERYTHROMYCIN BASE (ERYTHROMYCIN ORAL) Take 250 mg by mouth twice daily. ? Allergies: sulfa Social history: TOB use former Review of Systems: GENERAL: No weight loss, malaise or fevers RESPIRATORY: Negative for cough, hemoptysis, wheezing, COPD, dyspnea or shortness of breath CARDIOVASCULAR: Hypertension, 2003 [place] Triple bypass MUSCULOSKELETAL: Negative for joint pain or swelling, back pain or muscle pain SKIN: some pruitis PSYCH: anxiety over present medical condition, Negative for sleep disturbance, mood disorder and recent psychosocial stressors NEURO: No history of headaches, syncope, paralysis, seizures or tremors Physical examination: Vital signs Temp 96.9F HR 70 RR 19 BP 100/53 Ht: 5'1 Wt: 122# General WD/WN elderly appearing WF in no apparent distress, alert and oriented, not septic appearing HEENT Normocephalic. EOM intact with sclera clear and no icterus noted. Neck is supple with no jugular venous distention noted. Trachea is midline. Lungs normal breath sounds in all lung valadez. No rales/rhonchi/wheezing noted. No labored breathing noted, such as retractions. No cough heard. Heart normal heart sounds, regular. Abdomen soft and benign but with generalized tenderness to deep palpation, no rigidity noted. Normal bowel sounds area auscultated. Extremities no pitting edema noted. Genitourinary/Rectal deferred Skin normal skin integrity. Neurological no focal deficits. Psychological normal affect, patient is anxious but appropriate Impression: cholelithiasis, s/p stent placement GODOY with cirrhosis with ascites Discussion/plan: I have discussed the above with the patient and her daughter in law, Jose. There are no surgical options that I can offer her at [facility]. However, she has stents throughout her biliary tree, so unlikely obstructive process. Patient is overly anxious about this, I have tried to reassure her. She may have become bacteremic from the procedure on 02/08/18, however, she is being treated appropriately and is improving as evidenced by laboratory studies. I would recommend continued treatment as you are doing, pain medications for pain control and the patient can be discharged when improved. She can follow up with main [facility] as an outpatient. I have answered all questions to the patient?s satisfaction and the patient has no further questions.
--- NOTE | 2018-02-10 09:22 | CON.PCM_ITS ---
- Consult Date of Consult: 02/10/18 - Reason for Consult Chief Complaint: abdominal pain, elevated WBC History of Present Illness: 72 y/o WF with known GODOY (MELD score 19). I was consulted by hospitalist service. Patient had complained of abdominal pain after procedure at [facility]. Had elevated WBC and lactic acid upon admission. Treated with IV antibiotics and hydration. She states that she is improved this morning. WBC down to 11.8K, lactic acid normal. Complicated past history - Had presented with acute cholecystitis in July 2017, had Ecoli bacteremia. Had cholecystostomy tube placed July 2017. 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 Then cholecystostomy tube removed. Of note, gallbladder with one large stone, cannot be removed via ERCP. Patient is not a surgical candidate, however, the gallbladder and the CBD are stented open. Past Medical History: GODOY with cirrhosis and ascites coronary artery disease - last TTE EF 58% hypothyroidism Past Surgical History: CABG 2002 Medications: hydrocortisone (CORTISONE) 1 % cream Apply 1 application to affected area as n eeded. L acidophil/B lactis/B longum (FLORAJEN3 ORAL) Take by mouth once daily. hydrOXYzine HCl (ATARAX) 10 mg tablet Take 10 mg by mouth twice daily as needed. ammonium lactate (LAC-HYDRIN FIVE) 5 % lotn Apply to affected area as needed. rifAXIMin (RIFAXIMIN) 550 mg tab Take 550 mg by mouth twice daily. lactulose (DUPHALAC, CONSTULOSE) 20 gram/30 mL solution 30 mL by ORAL/FEEDING TUBE route three times daily. (Patient taking differently: Take 20 g by mouth twice daily. spironolactone (ALDACTONE) 100 mg tablet Take 150 mg by mouth once daily. furosemide (LASIX) 40 mg tablet Take 40 mg by mouth twice daily. *patient states she only takes this once a day* OMEPRAZOLE MAGNESIUM ORAL Take 40 mg by mouth once daily. Levothyroxine 25 mcg cap Take by mouth once daily. ERYTHROMYCIN BASE (ERYTHROMYCIN ORAL) Take 250 mg by mouth twice daily. ? Allergies: sulfa Social history: TOB use former Review of Systems: GENERAL: No weight loss, malaise or fevers RESPIRATORY: Negative for cough, hemoptysis, wheezing, COPD, dyspnea or shortness of breath CARDIOVASCULAR: Hypertension, 2003 [place] Triple bypass MUSCULOSKELETAL: Negative for joint pain or swelling, back pain or muscle pain SKIN: some pruitis PSYCH: anxiety over present medical condition, Negative for sleep disturbance, mood disorder and recent psychosocial stressors NEURO: No history of headaches, syncope, paralysis, seizures or tremors Physical examination: Vital signs Temp 96.9F HR 70 RR 19 BP 100/53 Ht: 5'1 Wt: 122# General WD/WN elderly appearing WF in no apparent distress, alert and oriented, not septic appearing HEENT Normocephalic. EOM intact with sclera clear and no icterus noted. Neck is supple with no jugular venous distention noted. Trachea is midline. Lungs normal breath sounds in all lung valadez. No rales/rhonchi/wheezing noted. No labored breathing noted, such as retractions. No cough heard. Heart normal heart sounds, regular. Abdomen soft and benign but with generalized tenderness to deep palpation, no rigidity noted. Normal bowel sounds area auscultated. Extremities no pitting edema noted. Genitourinary/Rectal deferred Skin normal skin integrity. Neurological no focal deficits. Psychological normal affect, patient is anxious but appropriate Impression: cholelithiasis, s/p stent placement GODOY with cirrhosis with ascites Discussion/plan: I have discussed the above with the patient and her daughter in law, Jose. There are no surgical options that I can offer her at [facility]. However, she has stents throughout her biliary tree, so unlikely obstructive process. Patient is overly anxious about this, I have tried to reassure her. She may have become bacteremic from the procedure on 02/08/18, however, she is being treated appropriately and is improving as evidenced by laboratory studies. I would recommend continued treatment as you are doing, pain medications for pain control and the patient can be discharged when improved. She can follow up with main [facility] as an outpatient. I have answered all questions to the patient?s satisfaction and the patient has no further questions.
--- NOTE | 2018-02-10 09:25 | NURSING ---
Daughter in law was called updated on patient condition per request of patient. Dr. Mora also updated her
[2018-02-10] MEDS: Pantoprazole Sodium 40 MG Tablet PO (09:48)
[2018-02-10] MEDS: hydrOXYzine 10 MG Tablet PO ×2 (09:48→22:39)
[2018-02-10] MEDS: rifAXIMin 550 MG Tablet PO ×2 (09:48→22:40)
[2018-02-10] MEDS: Piperacil/Tazobactam 3.375 GM/50 ML ML IV ×3 (10:00→22:40)
[2018-02-10 11:33] LABS: Bacteria 0 SEEN /hpf (None Seen); Mucous, Urine 0 SEEN /hpf (<or=2+); Red Blood Cells-Urine 0 SEEN /hpf (0-5)
[2018-02-10 11:35] LABS: Color, Urine Yellow (Yellow); Glucose, Dipstick Normal (Normal); Ketone-Dipstick 5 mg/dl (Negative); Leukocyte Esterase-Dipstick 500 /ul (Negative); Nitrite-Dipstick Negative (Negative); Occult Blood-Urine 10 /ul (Negative); Protein-Dipstick 15 mg/dl (Negative); Urine Bilirubin Dipstick Negative (Negative); Urine Clarity Clear (Clear); Urine Urobilinogen Normal (Normal)
[2018-02-10 11:41] LABS: Squamous Epithelial Cells - UA 0-5 SEEN /hpf (5-10); White Blood Cells 0-5 SEEN /hpf (0-5)
[2018-02-10 12:00] LABS: Ferritin 533 ng/mL (8-252); Iron 28 ug/dL (50-170); Iron Binding Capacity,Total 219 ug/dL (250-450); PERCENT IRON SATURATION 12.8 % (15.0-55.0)
[2018-02-10 12:08] LABS: Vitamin B12 1172 pg/mL (211-911)
--- NOTE | 2018-02-10 13:15 | CASEMGMT ---
SW met with patient, introduced self and role at [facility]. Patient lives with her in a 1 story home with laundry in the basement. Patient said she bathes herself and manages her own medications. She does not feel she needs home health as she said she can take of herself. SW let her know about her likely going to go to [facility] TCU at d/c. She said her daughter in law said she should go to TCU. Sw told her that therapy indicated she could go home with home health. SW told her insurance would not approve her to go to a nursing facility if therapy feels she could go home with home health. She said SW would need to talk with her daughter in law, Jose. SW called patient's daughter in law, Jose. SW let her know that patient's insurance will not approve her for fpc as therapy feels home health is sufficient. She said patient does not do much for herself as patient's usually does everything for her. She said that some days patient gets around ok and others she can barely walk. She expressed frustration with patient and patient's not caring for themselves at home appropriately. She feels they would benefit from going to assisted living, but they cannot afford this. SW suggested they apply for Medicaid and to make contact with [facility] regarding an assessment. SW told her SW will keep her updated as patient is having an ultrasound later today and could possibly be transferred. Meaghan TELLO
[2018-02-10 15:32] LABS: Pathologist Review Reviewed
[2018-02-11] VITALS (12 sets, daily range): BP systolic 118–128; BP diastolic 45–62; PULSE 61–79; RESP 14–20; TEMP 36.8–37.1; O2SAT 92–98
[2018-02-11] MEDS: 0.9% Normal Saline 1,000 ML 100 ML IV (02:13)
[2018-02-11] MEDS: Piperacil/Tazobactam 3.375 GM/50 ML ML IV ×3 (05:26→21:30)
[2018-02-11] MEDS: Levothyroxine 25 MCG TABLET PO (05:27)
[2018-02-11 06:49] LABS: Absolute Lymphocyte Count 0.98 X10^3/ul (0.83-4.51); Absolute Neutrophil Count 4.9 X10^3/uL (2.0-7.7); Basophil# 0.04 X10^3/uL; Basophil% 0.6 % (0-1); Eosinophil# 0.15 X10^3/uL; Eosinophils% 2.2 % (0-5); Hematocrit 31.5 % (37-47); Hemoglobin 10.7 g/dl (12.0-15.0); Lymphocyte # 0.98 X10^3/ul (4.0); Lymphocyte % 14.1 % (19-41); Mean Corpuscular Hgb 34.4 pg (27.0-32.0); Mean Corpuscular Volume 101.3 fL (81-99); Mean Platelet Vol. 11.6 fl (6.2-12.0); Monocyte# 0.87 X10^3/uL; Monocyte% 12.5 % (0-10); Neutrophil # 4.89 X10^3/uL (2.7-7.7); Neutrophil % 70.3 % (47-70); Platelet Count 74 K/mm3 (150-450); RBC Distribution Width CV 15.9 % (11.6-14.6); RBC Distribution Width SD 56.9 fl (35.1-43.9); Red Blood Count 3.11 M/mm3 (4.2-5.4)
[2018-02-11 06:54] LABS: International Normalized Ratio 1.6; Prothrombin Time (Protime)PT. 19.5 SECONDS (11.7-14.9)
[2018-02-11 07:08] LABS: ALB/GLOB Ratio 0.7 RATIO (0.9-2.4); AST(SGOT) 64 U/L (15-37); Alanine Aminotransfer ALT/SGPT 31 U/L (13-56); Alkaline Phosphatase 100 U/L (45-117); Anion Gap 8 (5-15); BUN 17 mg/dL (7-18); BUN/Creat Ratio 23.9 RATIO (10-20); Calcium,Total 7.3 mg/dL (8.5-10.1); Chloride 114 mmol/L (98-107); Creatinine, Serum 0.71 mg/dL (0.55-1.02); EST Glomerular Filtration Rate 85 mL/min (>60); Est Glom Filt Rate - Afr Amer 103 mL/min (>60); Estimated Creatinine Clearance 37.81 ml/min; Glucose 75 mg/dL (74-106); Potassium 3.5 mmol/L (3.5-5.1); Sodium Level 142 mmol/L (136-145)
[2018-02-11 07:11] LABS: POSITIVE COUNT NO; POSITIVE DIFFERENTIAL NO; POSITIVE MORPHOLOGY NO
--- NOTE | 2018-02-11 08:17 | PN_ITS ---
Subjective: Chief complaint: Follow-up after admission for severe sepsis due to probable spontaneous bacterial peritonitis versus acute ascending cholangitis, found to have right-sided pleural effusion and severe aortic stenosis. Patient seen and examined. No acute events overnight. Nursing staff reported that her oxygen requirement has been increasing since yesterday. The patient denies any significant shortness of breath or chest pain. Her abdominal pain improved. Denied nausea or vomiting. Denied fever chills. She is afebrile, blood pressure in the hospital stable, pulse ox is 92% on 5 L. - Physical Exam General: Alert, Oriented x3, Cooperative, No apparent distress HEENT: Atraumatic, PERRLA, EOMI, Normocephalic Oral: Moist Mucosa, No Gingival or Mucosal Lesions/ Ulcerations Neck: Supple, No JVD, Negative Carotid Bruits, Trachea Midline, Thyroid Normal Size and Texture Lungs: Clear to auscultation, No rhonchi, No wheeze, No rales, Diminished Cardiovascular: Regular rate, Regular Rhythm, Normal S1, Normal S2, Murmur - Systolic murmur. Abdomen: Bowel Sounds Present, Soft, Non Tender, Non-Distended, No Hepato- splenomegaly Extremities: No clubbing, No cyanosis, No edema Skin: No rashes, No breakdown Lymphatic: No Cervical, Supraclavicular, or Inguinal Adenopathy Neurological: Cranial nerves II-XII grossly intact, Motor Exam 5/5 strength throughout Psych/Mental Status: Normal Affect, Appropriate, Alert and oriented to time, place, person, mood and affect Vital Signs Temp Pulse Resp BP Pulse Ox 98.8 F 61 19 H 124/53 H 92 02/11/18 04:37 02/11/18 07:26 02/11/18 04:37 02/11/18 04:37 02/11/18 04:37 Oxygen Flow Rate (L/min) 5 Oxygen Delivery Method Nasal Cannula Weight: 122 lb 2.177 oz Body Mass Index (BMI) 23.1 Intake and Output for Last 24 Hours 02/09/18 02/10/18 02/11/18 23:59 23:59 23:59 Intake Total 909 / 909 3453.7 / 3453.7 565.5 / 565.5 Balance 909 / 909 3453.7 / 3453.7 565.5 / 565.5 Microbiology Past 72 Hours 02/10/18 08:25 Stool Occult Blood (JACKELIN) - Final Stool 02/10/18 08:25 C. difficile DNA Amplification - Final Stool Laboratory Tests Past 24 Hrs 02/09/18 02/10/18 02/10/18 13:50 06:30 06:30 WBC RBC Hgb Hct MCV MCH MCHC RDW RDW Differential Plt Count MPV Immature Gran % (Auto) Neut % (Auto) Lymph % (Auto) Prowers % (Auto) Eos % (Auto) Baso % (Auto) Absolute Neuts (auto) Absolute Lymphs (auto) Total Counted Diff Path Review Reviewed PT INR Sodium Potassium Chloride Carbon Dioxide Anion Gap BUN Creatinine Estim Creat Clear Calc Est GFR (MDRD) Af Amer Est GFR (MDRD) Non-Af BUN/Creatinine Ratio Glucose Calcium Iron 28 L TIBC 219 L Iron Saturation 12.8 L Ferritin 533 H Total Bilirubin AST ALT Alkaline Phosphatase Total Protein Albumin Globulin Albumin/Globulin Ratio Vitamin B12 1172 H RBC Folate Hemolysate RBC Folate Hematocrit Urine Color Urine Clarity Urine pH Ur Specific Alborn Urine Protein Urine Glucose (UA) Urine Ketones Urine Occult Blood Urine Nitrite Urine Bilirubin Urine Urobilinogen Ur Leukocyte Esterase Urine RBC Urine WBC Ur Squamous Epith Cells Urine Bacteria Urine Mucus 02/10/18 02/10/18 02/11/18 06:30 11:20 06:35 WBC 7.0 RBC 3.11 L Hgb 10.7 L Hct 31.5 L MCV 101.3 H MCH 34.4 H MCHC 34.0 RDW 15.9 H RDW Differential 56.9 H Plt Count 74 L MPV 11.6 Immature Gran % (Auto) 0.300 Neut % (Auto) 70.3 H Lymph % (Auto) 14.1 L Prowers % (Auto) 12.5 H Eos % (Auto) 2.2 Baso % (Auto) 0.6 Absolute Neuts (auto) 4.9 Absolute Lymphs (auto) 0.98 Total Counted Not Reportable Diff Path Review PT INR Sodium Potassium Chloride Carbon Dioxide Anion Gap BUN Creatinine Estim Creat Clear Calc Est GFR (MDRD) Af Amer Est GFR (MDRD) Non-Af BUN/Creatinine Ratio Glucose Calcium Iron TIBC Iron Saturation Ferritin Total Bilirubin AST ALT Alkaline Phosphatase Total Protein Albumin Globulin Albumin/Globulin Ratio Vitamin B12 RBC Folate Hemolysate Pending RBC Folate Pending Hematocrit Pending Urine Color Yellow Urine Clarity Clear Urine pH 6.0 Ur Specific Alborn 1.020 Urine Protein 15 H Urine Glucose (UA) Normal Urine Ketones 5 H Urine Occult Blood 10 H Urine Nitrite Negative Urine Bilirubin Negative Urine Urobilinogen Normal Ur Leukocyte Esterase 500 H Urine RBC 0 SEEN Urine WBC 0-5 SEEN Ur Squamous Epith Cells 0-5 SEEN Urine Bacteria 0 SEEN Urine Mucus 0 SEEN 02/11/18 02/11/18 06:35 06:35 WBC RBC Hgb Hct MCV MCH MCHC RDW RDW Differential Plt Count MPV Immature Gran % (Auto) Neut % (Auto) Lymph % (Auto) Prowers % (Auto) Eos % (Auto) Baso % (Auto) Absolute Neuts (auto) Absolute Lymphs (auto) Total Counted Diff Path Review PT 19.5 H INR 1.6 Sodium 142 Potassium 3.5 Chloride 114 H Carbon Dioxide 20.0 L Anion Gap 8 BUN 17 Creatinine 0.71 Estim Creat Clear Calc 37.81 Est GFR (MDRD) Af Amer 103 Est GFR (MDRD) Non-Af 85 BUN/Creatinine Ratio 23.9 H Glucose 75 Calcium 7.3 L Iron TIBC Iron Saturation Ferritin Total Bilirubin 1.70 H AST 64 H ALT 31 Alkaline Phosphatase 100 Total Protein 5.0 L Albumin 2.0 L Globulin 3.0 Albumin/Globulin Ratio 0.7 L Vitamin B12 RBC Folate Hemolysate RBC Folate Hematocrit Urine Color Urine Clarity Urine pH Ur Specific Alborn Urine Protein Urine Glucose (UA) Urine Ketones Urine Occult Blood Urine Nitrite Urine Bilirubin Urine Urobilinogen Ur Leukocyte Esterase Urine RBC Urine WBC Ur Squamous Epith Cells Urine Bacteria Urine Mucus Clinical Impression(s) from Imaging Studies Liver Ultrasound 02/10/18 08:09 IMPRESSION: Ascites. Right pleural effusion. Cirrhotic liver. No focal hepatic lesions identified. Please note that CT and MRI are more sensitive for the detection of hepatic lesion in the setting of cirrhosis. Gallstones and sludge noted in the gallbladder. Gallbladder wall thickening which is a nonspecific finding in the setting of ascites. Common bile duct stent in place. No biliary duct dilatation. Electronically Signed: Graeme Dunn, at 16:05 EDT Tel , Service support , Medical Necessity - Tobacco Use Smoking Status: Former smoker Tobacco Use: Cigarettes Assessment/Plan This is a 72 years old admitted because of abdominal pain and she was found to have severe sepsis attributed to probable spontaneous bacterial peritonitis versus ascending cholangitis. #1 severe sepsis: Attributed to probable spontaneous bacterial peritonitis versus ascending cholangitis. She is on IV Zosyn. Lactic acid is back to normal. Reportedly, her oxygen requirement has been increasing, other vital signs are stable, blood pressure stable. Blood cultures are pending. White blood cell count is back to normal. Ultrasound gallbladder and liver revealed normal bile ducts, CBD diameter is 4 mm with stent in it, no evidence of biliary dilatation, ascites. Her bilirubin is trending down, liver transaminases and alkaline phosphatase are back to normal. Patient symptoms improved. Plan: Continue same treatment, anticipate discharge tomorrow. #2 probable SBP versus ascending cholangitis: At this time, no clear diagnosis but her symptoms are suggestive of SBP versus ascending cholangitis. She is on IV Zosyn. Her vital signs are stable except her pulse ox but she is not short of breath. She has been afebrile, white blood cell count is trending down as above. Ultrasound liver and gallbladder reviewed as above. Plan to potassium treatment. #3 acute on chronic normocytic anemia: Her baseline hemoglobin has been around 11-12 g/dL. On admission, it was 11.7 g/dL. Today's hemoglobin is 10.7 g/dL, improved. Stool was negative for occult blood. This is probably anemia of chronic disease secondary to chronic liver disease and cirrhosis. Her serum iron as well as iron saturation are low. B12 and folate are pending. Plan to start iron supplement, no indication for transfusion. #4 thrombocytopenia/coagulopathy: Likely due to chronic liver disease. INR is 1.6, platelet count is 74,000. #5 recent history of nonoperable acute cholecystitis: Status post removal of percutaneous cholecystostomy tube, status post cystic duct and CBD stent placement at [facility]. Ultrasound liver and gallbladder revealed patent CBD stent without evidence of biliary duct dilatation. Plan as above. #6 severe aortic stenosis. 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 2D echocardiogram revealed ejection fraction of 60%, RVSP of 28, severe aortic stenosis with calculated aortic valve area of 0.90 cm?. Patient has been requiring more oxygen because of the IV fluids. She does have a right-sided pleural effusion which is likely transudative because of chronic CHF. Plan: DC IV fluids, resume her home dose of Lasix, encourage oral intake. 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 #8 hypothyroidism: Continue levothyroxine. #9 CAD status post CABG: Stable, no acute issues. EKG revealed normal sinus rhythm, no acute ischemic changes. She is not on any standard medication for CAD likely because of elevated INR and chronic low blood pressure. #10 stage III chronic kidney disease: Baseline creatinine has been around 1.2- 1.4 mg with sitter. Admission creatinine is 1.39, came down to 0.71 today, stable. #11 DVT prophylaxis: SCDs. This note was generated with [employer] dictation software. It may contain incorrect words, spelling, and punctuation that were not noted in checking the note before signing. Code Visit Inpatient E&M: 42684 Subs Hosp L2
[2018-02-11] MEDS: 0.9% NaCl Peripheral Flush Adult/Peds IV ×3 (08:18→21:30)
[2018-02-11] MEDS: Furosemide 40 MG/4 ML Vial IV (08:18)
[2018-02-11] MEDS: hydrOXYzine 10 MG Tablet PO ×2 (11:27→21:36)
[2018-02-11] MEDS: rifAXIMin 550 MG Tablet PO ×2 (11:28→21:33)
[2018-02-11] MEDS: Pantoprazole Sodium 40 MG Tablet PO (11:28)
[2018-02-11] MEDS: Ferrous Sulfate 325 MG Tablet PO ×2 (11:36→18:49)
--- NOTE | 2018-02-11 15:00 | CHAPLAIN ---
Type of Pastoral Visit _x__ Initial Visit ___ Follow-up Visit ___ On-call Visit ___ General Patient Visit ___ Spiritual Assessment ___ Family Conference ___ Bereavement ___ Rapid Response ___ Code Blue ___ Other (describe below) Pastoral Care Referral From _x__ Patient ___ Family ___ Nurse ___ Physician ___ Flavor Maker ___ Paint Technician ___ Other (describe below) Sacrament/Intervention _x__ Active listening ___ Anointing ___ Sabianism ___ Bereavement ___ Communion ___ Abbie exploration ___ _x__ Life review _x__ Prayer ___ Reconciliation ___ Sacrament of Sick _x__ Supportive presence ___ Wedding ___ Other (describe below) Pastoral Comments patient had requested spiritual support yesterday but pt was out of room when this inbound customer service representative attempted visit; found pt today sitting in chair; pt appears weak but is alert; pt describes her health situation; pt admits that doctor told me that I needed to make decisions because 'everyone dies'; pt says that she does not want to give up and it is my right to fight to live; pt speaks of her spouse who is also a patient in the hospital and of her concern for his condition; pt indicates that her son is in charge of decisions for her now and that she is thankful for his (and dil) presence and support; pt says that she handles these situations but praying alot; pt requests prayer support from inbound customer service representative, further visits, and a visit to her spouse
[2018-02-11 20:07] LABS: Folate, Hemolysate Test 530.6 ng/mL (Not Estab.); Folate, RBC (Hct) Test 33.2 % (34.0-46.6)
[2018-02-12] VITALS (8 sets, daily range): BP systolic 116–148; BP diastolic 56–67; PULSE 64–75; RESP 13–22; TEMP 36.6–37.2; O2SAT 90–95
[2018-02-12] MEDS: Piperacil/Tazobactam 3.375 GM/50 ML ML IV (05:12)
[2018-02-12] MEDS: Levothyroxine 25 MCG TABLET PO (05:13)
[2018-02-12] MEDS: 0.9% NaCl Peripheral Flush Adult/Peds IV ×2 (05:14→09:25)
--- NOTE | 2018-02-12 07:33 | NURSING ---
Pt noted to have large hemorrhoids.
[2018-02-12] MEDS: rifAXIMin 550 MG Tablet PO (09:21)
[2018-02-12] MEDS: hydrOXYzine 10 MG Tablet PO (09:21)
[2018-02-12] MEDS: Pantoprazole Sodium 40 MG Tablet PO (09:21)
[2018-02-12] MEDS: Furosemide 40 MG Tablet PO (09:22)
[2018-02-12] MEDS: Spironolactone 50 MG Tablet 150 MG PO (10:38)
--- NOTE | 2018-02-12 11:31 | DCINST_ITS ---
You will use the following diet at home:: Cardiac Your food should be the consistency of: Regular Discharge Activity: Return to Normal Activity Weight Bearing Status: Weight bearing as tolerated Call your doctor if you observe: Fever of 101 or Higher, Shortness of breath, Dizziness, Fainting spells, Swelling in the ankles, Chest pain, Increased palpitations (irregular heartbeat), Uncontrolled pain Additional Instructions: 1. Take ciprofloxacin 500 mg twice a day for 5 days, you do have this medication with you. 2. Follow-up with your doctor up at [facility]. Allergies/Adverse Reactions: Allergies Sulfa (Sulfonamide Antibiotics) Allergy (Verified 02/09/18 12:56) Hives Medications to take at Discharge Furosemide [Lasix] 40 mg PO DAILY 08/01/17 Levothyroxine [Synthroid] 25 mcg PO DAILY 08/01/17 Omeprazole 40 mg PO DAILY 08/01/17 Rifaximin [Xifaxan] 550 mg PO BID #60 tab 08/11/17 Lactulose [Chronulac] 30 ml PO TID #2700 ml 08/16/17 Ciprofloxacin HCl 500 mg PO BID 02/09/18 Hydroxyzine HCl 10 mg PO BID 02/09/18 Spironolactone [Aldactone] 150 mg PO DAILY 02/09/18 l Acidophil/B Lactis/B Longum [Florajen3 Capsule] 1 cap PO DAILY 02/09/18 Ferrous Sulfate 325 mg PO 1200,1700 #90 tablet 02/12/18 The following prescriptions were given: Ferrous Sulfate 325 mg PO 1200,1700 #90 tablet Orders to be completed after discharge: CBC W/Diff, Automated Time Frame: 02/17/18, Location: Laboratory Comprehensive Metabolic Profil Time Frame: 02/17/18, Location: Laboratory Primary Care Physician: Fish Becerril [Primary Care Provider] - Please follow up with your Primary Care Physician in: 1 week. Test Results: Test results from this visit will be discussed in further detail at your follow- up appointment, if applicable.
[2018-02-12 12:32] LABS: Folates, RBC Test 1598 ng/mL (>498)
[2018-02-12] MEDS: Ferrous Sulfate 325 MG Tablet PO (13:23)
--- NOTE | 2018-02-12 14:08 | CASEMGMT ---
Therapy recommending [facility] for pt at this time. This RN CM to room to speak with pt and she is sleeping without distress at this time and does not awaken to verbal stimuli or knock on the door. This RN CM spoke with pt's daughter in law(listed contact) and she would like [facility] at this time and also agrees to referral to [facility] and [facility]. This RN CM spoke with Kajal at [facility], who is in-network per [facility] website, and they are agreeable to take pt at this time. Referral also made to [facility] and [facility] at this time. Order placed for [facility] at this time for RN/PT/OT and SW. Brant MARSH CM
--- NOTE | 2018-02-12 15:07 | DS.PCM_ITS ---
Discharge Date and Diagnosis Date of Admission: 02/09/18 Date of Discharge: 02/12/18 - Primary Discharge Diagnosis #1 severe sepsis. #2 probable spontaneous bacterial peritonitis, most likely ascending cholangitis. #3 acute on chronic iron deficiency anemia without evidence of acute blood loss. #4 thrombocytopenia/coagulopathy. #5 severe aortic stenosis. - Secondary Discharge Diagnosis Chronic Problems Cholelithiasis (Chronic) Hypothyroidism (Chronic) GODOY (nonalcoholic steatohepatitis) (Chronic) Cirrhosis (Chronic) Pulmonary hypertension (Chronic) Ascites (Chronic) Chronic kidney disease (Chronic) Coronary artery disease (Chronic) Portal hypertension (Chronic) Hospital Course and Treatment Imaging Results: Clinical Impression(s) from Imaging Studies Chest X-Ray 02/09/18 13:42 IMPRESSION: Small right pleural effusion with underlying infiltration and/or atelectasis. Electronically Signed: Ricardo Perry MD at 14:15 EDT Tel [phone], Service support , Abdomen Ultrasound 02/09/18 14:38 IMPRESSION: Not enough fluid for safe paracentesis. Small right pleural effusion. Electronically Signed: Ricardo Perry MD at 13:13 EDT Tel [phone], Service support , Liver Ultrasound 02/10/18 08:09 IMPRESSION: Ascites. Right pleural effusion. Cirrhotic liver. No focal hepatic lesions identified. Please note that CT and MRI are more sensitive for the detection of hepatic lesion in the setting of cirrhosis. Gallstones and sludge noted in the gallbladder. Gallbladder wall thickening which is a nonspecific finding in the setting of ascites. Common bile duct stent in place. No biliary duct dilatation. Electronically Signed: Graeme Dunn, at 16:05 EDT Tel , Service support , Dr. Mora, general surgery. Operations: None Procedures: None Summary of Care Provided: Patient seen and examined on the day of discharge and appeared to be stable to be discharged home. Her abdominal pain is almost gone. She has been tolerating diet. Her vital signs are stable, afebrile. The patient is a 72 year old F admitted because of abdominal pain and she was found to have severe sepsis. This severe sepsis attributed to probable spontaneous bacterial peritonitis versus ascending cholangitis. This patient had a recent history of nonoperable acute cholecystitis, status post removal of percutaneous cholecystostomy tube 2 days before admission, status post cystic duct and CBD stents and that procedure was done at [facility]. On admission, she was found to have leukocytosis, elevated lactic acid and elevated total bilirubin as well as slightly elevated AST and alkaline phosphatase. Upon admission, she did have generalized abdominal tenderness and because of her history of liver cirrhosis and ascites, spontaneous bacterial peritonitis was the probable diagnosis. Because of her recent history of biliary stents as well as fever, jaundice and elevated total bilirubin, ascending cholangitis considered. Patient was treated with IV fluids, IV pain medications, IV antiemetics and IV Zosyn. Ultrasound gallbladder and liver revealed normal bile ducts without evidence of biliary dilatation, CBD diameter of 4 mm with stent in it and ascites. With IV antibiotic therapy, patient symptoms improved, white blood cell count returned back to normal, total bilirubin dropped and she has been afebrile for more than 48 hours. She was found to have acute on chronic normocytic anemia and her hemoglobin dropped down to 10.7 g/dL with baseline hemoglobin of around 11-12 g/dL. There was no evidence of active bleeding. Her stool was negative for occult blood. Her iron and iron saturation were low. She was started on iron supplement. There was no indication for blood transfusion. Her platelet count was low and her INR was elevated which are attributed to liver cirrhosis and chronic liver disease. 2D echocardiogram done because she had ascites as well as small right side pleural effusion and revealed ejection fraction of 60% and severe aortic stenosis with calculated aortic valve area of 0.90 cm?. According to the patient, she is known case of severe aortic stenosis and she has been following up with cardiology as outpatient. Patient discharged home with home health in a stable medical condition, discharged on ciprofloxacin 500 mg p.o. twice daily for 7 days, continued on Lasix and Aldactone as well as rifaximin and lactulose, started on iron supplement, order given to repeat CBC and CMP in 5 days, follow-up with PCP in 1 week, recommended to follow-up with her surgeon/gastroenterology at [facility]. - Physical Exam General: Alert, Oriented x3, Cooperative, No apparent distress HEENT: Atraumatic, PERRLA, EOMI, Normocephalic Oral: Moist Mucosa, No Gingival or Mucosal Lesions/ Ulcerations Neck: Supple, No JVD, Negative Carotid Bruits, Trachea Midline, Thyroid Normal Size and Texture Lungs: No rhonchi, No wheeze, No rales, Diminished, - - Decreased breath sounds on the right base, otherwise clear. Cardiovascular: Regular rate, Regular Rhythm, Normal S1, Normal S2, Murmur - Systolic murmur. Abdomen: Bowel Sounds Present, Soft, Non Tender, Non-Distended, No Hepato- splenomegaly Extremities: No clubbing, No cyanosis, No edema Skin: No rashes, No breakdown Lymphatic: No Cervical, Supraclavicular, or Inguinal Adenopathy Neurological: Cranial nerves II-XII grossly intact, Neuro grossly intact Psych/Mental Status: Normal Affect, Appropriate, Alert and oriented to time, place, person, mood and affect Vital Signs Temp Pulse Resp BP Pulse Ox 97.8 F 75 16 116/56 L 94 02/12/18 09:18 02/12/18 10:58 02/12/18 09:18 02/12/18 09:18 02/12/18 11:21 Oxygen Flow Rate (L/min) [ 0 AMBULATING on Room Air] Oxygen Flow Rate (L/min) [At 0 REST on Room Air] Oxygen Flow Rate (L/min) 2 Oxygen Delivery Method Room Air Weight: 122 lb 2.177 oz Body Mass Index (BMI) 23.1 Intake and Output for Last 24 Hours 02/10/18 02/11/18 02/12/18 23:59 23:59 23:59 Intake Total 3453.7 / 3453.7 2043.2 / 2043.2 551.3 / 551.3 Output Total 250 / 250 Balance 3453.7 / 3453.7 2043.2 / 2043.2 301.3 / 301.3 Microbiology Past 72 Hours 02/10/18 11:20 Urine Culture - Final Urine, Clean Catch Culture exhibits no growth. 02/09/18 14:20 Blood Culture - Preliminary Blood Culture (Wb) - Anticubital Left No growth in 48 hours. 02/09/18 13:50 Blood Culture - Preliminary Blood Culture (Wb) - Anticubital Right No growth in 48 hours. 02/10/18 08:25 Stool Occult Blood (JACKELIN) - Final Stool 02/10/18 08:25 C. difficile DNA Amplification - Final Stool Laboratory Tests Past 24 Hrs 02/10/18 06:30 RBC Folate Hemolysate 530.6 RBC Folate 1598 Hematocrit 33.2 L Discharge Activity: Return to Normal Activity Weight Bearing Status: Weight bearing as tolerated Call your doctor if you observe: Fever of 101 or Higher, Shortness of breath, Dizziness, Fainting spells, Swelling in the ankles, Chest pain, Increased palpitations (irregular heartbeat), Uncontrolled pain Home Medications: Medications to take at Discharge Furosemide [Lasix] 40 mg PO DAILY 08/01/17 Levothyroxine [Synthroid] 25 mcg PO DAILY 08/01/17 Omeprazole 40 mg PO DAILY 08/01/17 Rifaximin [Xifaxan] 550 mg PO BID #60 tab 08/11/17 Lactulose [Chronulac] 30 ml PO TID #2700 ml 08/16/17 Ciprofloxacin HCl 500 mg PO BID 02/09/18 Hydroxyzine HCl 10 mg PO BID 02/09/18 Spironolactone [Aldactone] 150 mg PO DAILY 02/09/18 l Acidophil/B Lactis/B Longum [Florajen3 Capsule] 1 cap PO DAILY 02/09/18 Ferrous Sulfate 325 mg PO 1200,1700 #90 tablet 02/12/18 Following Prescrptions Were Given to Patient: Ferrous Sulfate 325 mg PO 1200,1700 #90 tablet Other Amb Orders: CBC W/Diff, Automated Time Frame: 02/17/18, Location: Laboratory Comprehensive Metabolic Profil Time Frame: 02/17/18, Location: Laboratory Primary Care Physician: Fish Becerril [Primary Care Provider] - Please follow up with your Primary Care Physician in: 1 week. Please Follow Up With: Fish Becerril When: 1 Week Medical Necessity - Tobacco Use Smoking Status: Former smoker Tobacco Use: Cigarettes Meaningful Use Info Meaningful Use Diagnoses (Choose all that apply): None applicable Code Visit Inpatient E&M: 13069 Disch Hosp
--- NOTE | 2018-02-15 13:28 | CASEMGMT ---
MAXIMO CM DC PHONE CALL DISCHARGE DATE: 02/12/2018 DISCHARGE DISPOSITION: Home LACE/STRATA: 02/13 Call to home. No answer. Role of CM and purpose of call left on message machine with call back information if pt would like to return call and has questions. Daisy MARSH BSN CM
--- NOTE | 2018-02-23 10:14 | CCN.REFER ---
Patient is declining CCN at this time. States her children are checking on her a few times a day, and she has [facility] also checking on her multiple times a week. I contacted Sherie via [employer] whom is her RN CM with [facility]. Ymoi will let me know if she changes her mind when [facility] discharges.
== END 2018-02-12 18:26 | disposition home or self-care (01) | DRG 871 ==
LOC: ED 13:56 → PCU 16:57
PROVIDERS: Hospitalist; Admitting Provider Family Medicine; Emergency Provider Emergency Medicine; Family Provider Family Medicine; PCP Family Medicine; Referring Provider Family Medicine; Visit Provider Hospitalist
DX: A41.9 Sepsis, unspecified organism (principal); K65.2 Spontaneous bacterial peritonitis; K83.09 Other cholangitis; R18.8 Other ascites; K76.6 Portal hypertension; R65.20 Severe sepsis without septic shock; D50.9 Iron deficiency anemia, unspecified; E03.9 Hypothyroidism, unspecified; D69.6 Thrombocytopenia, unspecified; I35.0 Nonrheumatic aortic (valve) stenosis; Z87.891 Personal history of nicotine dependence; Z96.89 Presence of other specified functional implants; K74.60 Unspecified cirrhosis of liver; K75.81 Nonalcoholic steatohepatitis (NASH); I27.20 Pulmonary hypertension, unspecified; N18.9 Chronic kidney disease, unspecified
CPT/HCPCS: 36415; 71045; 76705; 80048; 80053; 81001; 82274; 82607; 82728; 82747; 83540; 83550; 83605; 83690; 85014; 85025; 85610; 85730; 87040; 87086; 87493; 93005; 93306; 97162; 97165; 97530; 97535; 97802; 99283; J7030; A4216; J0696; J1940

== ENCOUNTER 2018-02-17 17:33 | Outpatient (RCR) | payer OTHER, MEDICARE, SELFPAY ==
[2018-02-17 18:05] LABS: Absolute Lymphocyte Count 1.46 X10^3/ul (0.83-4.51); Basophil# 0.05 X10^3/uL; Basophil% 1.2 % (0-1); Eosinophils% 2.3 % (0-5); Hematocrit 37.4 % (37-47); Hemoglobin 12.9 g/dl (12.0-15.0); Lymphocyte # 1.46 X10^3/ul (4.0); Lymphocyte % 34.1 % (19-41); Mean Corp Hgb Conc 34.5 g/gl (32-36); Mean Corpuscular Hgb 34.4 pg (27.0-32.0); Mean Corpuscular Volume 99.7 fL (81-99); Mean Platelet Vol. 10.6 fl (6.2-12.0); Monocyte# 0.66 X10^3/uL; Monocyte% 15.4 % (0-10); Neutrophil # 1.99 X10^3/uL (2.7-7.7); Neutrophil % 46.5 % (47-70); Platelet Count 172 K/mm3 (150-450); RBC Distribution Width CV 16.2 % (11.6-14.6); RBC Distribution Width SD 55.3 fl (35.1-43.9); Red Blood Count 3.75 M/mm3 (4.2-5.4); White Blood Count 4.3 K/mm3 (4.4-11.0)
[2018-02-17 18:07] LABS: POSITIVE COUNT NO; POSITIVE DIFFERENTIAL NO; POSITIVE MORPHOLOGY NO
[2018-02-17 18:19] LABS: ALB/GLOB Ratio 0.8 RATIO (0.9-2.4); AST(SGOT) 54 U/L (15-37); Alanine Aminotransfer ALT/SGPT 32 U/L (13-56); Albumin, Serum 3.1 g/dL (3.2-5.0); Alkaline Phosphatase 159 U/L (45-117); Anion Gap 9 (5-15); BUN 12 mg/dL (7-18); BUN/Creat Ratio 11.5 RATIO (10-20); Calcium,Total 8.9 mg/dL (8.5-10.1); Chloride 105 mmol/L (98-107); Creatinine, Serum 1.04 mg/dL (0.55-1.02); EST Glomerular Filtration Rate 55 mL/min (>60); Est Glom Filt Rate - Afr Amer 67 mL/min (>60); Globulin 4.1 g/dL (2.2-4.2); Glucose 107 mg/dL (74-106); Potassium 3.3 mmol/L (3.5-5.1); Protein, Total 7.2 g/dL (6.4-8.2); Sodium Level 141 mmol/L (136-145)
== END 2018-03-12 23:59 ==
LOC: HHLAB 17:33
PROVIDERS: Family Provider Family Medicine; PCP Family Medicine; Referring Provider Hospitalist; Visit Provider Hospitalist
DX: K74.60 Unspecified cirrhosis of liver (principal); D64.9 Anemia, unspecified; D69.6 Thrombocytopenia, unspecified
CPT/HCPCS: 80053; 85025

== ENCOUNTER → 2019-06-02 10:26 | Outpatient (CLI) | payer MEDICARE, SELFPAY ==
[2018-02-09 17:21] VITALS: BMI 23.1
[2019-06-02 11:46] LABS: Ammonia < 10.0 umol/L (11-32)
[2019-06-02 12:04] LABS: Absolute Lymphocyte Count 0.94 X10^3/uL (0.83-4.51); Absolute Neutrophil Count 1.7 X10^3/uL (2.0-7.7); Basophil# 0.02 X10^3/uL; Basophil% 0.6 % (0-1); Eosinophil# 0.02 X10^3/uL; Eosinophils% 0.6 % (0-5); Hematocrit 38.9 % (37-47); Lymphocyte # 0.94 X10^3/ul (4.0); Lymphocyte % 28.5 % (19-41); Mean Corp Hgb Conc 33.4 g/dL (32-36); Mean Corpuscular Hgb 33.5 pg (27.0-32.0); Mean Corpuscular Volume 100.3 fL (81-99); Mean Platelet Vol. 10.9 fl (6.2-12.0); Monocyte# 0.65 X10^3/uL; Monocyte% 19.7 % (0-10); NRBC Flagged by Analyzer 0 % (0-5); Neutrophil # 1.67 X10^3/uL (2.7-7.7); Neutrophil % 50.6 % (47-70); Platelet Count 106 K/mm3 (150-450); RBC Distribution Width CV 15.7 % (11.6-14.6); RBC Distribution Width SD 57.6 fl (35.1-43.9); Red Blood Count 3.88 M/mm3 (4.2-5.4); White Blood Count 3.3 K/mm3 (4.4-11.0)
[2019-06-02 12:21] LABS: International Normalized Ratio 1.3; Prothrombin Time (Protime)PT. 16.3 SECONDS (11.7-14.9)
[2019-06-02 12:38] LABS: ALB/GLOB Ratio 0.9 RATIO (0.9-2.4); AST(SGOT) 58 U/L (15-37); Alanine Aminotransfer ALT/SGPT 34 U/L (13-56); Albumin, Serum 3.3 g/dL (3.2-5.0); Alkaline Phosphatase 140 U/L (45-117); Anion Gap 6 (5-15); BUN 19 mg/dL (7-18); BUN/Creat Ratio 20.4 RATIO (10-20); Calcium,Total 9.9 mg/dL (8.5-10.1); Chloride 103 mmol/L (98-107); Creatinine, Serum 0.93 mg/dL (0.55-1.02); EST Glomerular Filtration Rate 62 mL/min (>60); Est Glom Filt Rate - Afr Amer 75 mL/min (>60); Globulin 3.8 g/dL (2.2-4.2); Glucose 74 mg/dL (74-106); Potassium 4.6 mmol/L (3.5-5.1); Protein, Total 7.1 g/dL (6.4-8.2); Sodium Level 136 mmol/L (136-145)
[2019-06-03 12:01] LABS: AFP, Tumor Marker 4.9 ng/mL (0.0-8.3)
== END ==
PROVIDERS: PCP Family Medicine
DX: K74.60 Unspecified cirrhosis of liver (principal); K76.6 Portal hypertension; R19.7 Diarrhea, unspecified; R60.0 Localized edema
CPT/HCPCS: 36415; 80053; 82105; 82140; 85025; 85610; 87506